=== PATIENT | male | born 1970 | race Caucasian/White ===

== ENCOUNTER 2017-12-30 19:32 | Observation (INO) ==
[2017-12-30] MEDS ORDERED: diazePAM 2 MG Tablet PO ONE (22:30)
[2017-12-30] MEDS ORDERED: HYDROmorphone PF Inj 2 MG/ML Vial IV.PUSH ONE (22:30)
--- NOTE | 2017-12-30 22:42 | ED ---
HPI General Chief complaint: Back Pain/Injury Stated complaint: L Back Pain Time Seen by Provider: 12/30/17 22:20 Source: patient, family, RN notes reviewed and old records reviewed Mode of arrival: ambulatory History of Present Illness HPI narrative: 47yM presenting with low back pain. The patient states that he had multi-level lumbar fusion several years ago by Dr. Key; over the past 2 weeks, he's started to develop midline lower back pain which radiates down his left leg, constant, worse with any movement and not made better by anything, severe, "sharp", associated with sexual dysfunction, urinary "dribbling", and left leg weakness. He denies trauma, fever or chills, recent heavy lifting or repetitive motions. He has been taking BC powder with minimal relief of symptoms. Related Data Home Medications Medication Instructions Recorded Confirmed No Known Home Medications 12/30/17 12/30/17 Allergies Allergy/AdvReac Type Severity Reaction Status Date / Time No Known Allergies Allergy Uncoded 06/27/15 09:19 Review of Systems ROS: all other systems reviewed are negative Constitutional Denies fever(s) Eyes Denies blurry vision Cardiovascular Denies chest pain Respiratory Denies cough Gastrointestinal Denies nausea Genitourinary Reports urinary incontinence Musculoskeletal Reports abnormal gait and Reports back pain Neurologic Denies confusion Psychiatric Denies confusion PMFSH History History Provided By: Patient Surgical History Surgical History History of back surgery (Acute) History of cholecystectomy (Acute) Hx of neck surgery (Acute) Social History Social History Substance History: No History of Abuse Second Hand Smoke Exposure: Yes Smoking Status: Current every day smoker Tobacco Type: Cigarettes How Often Do You Have a Drink Containing Alcohol: Never Immunization History Tetanus Immunization: <5 Years Hx Influenza Vaccine This Season: Yes Exam Const General: healthy appearing and no acute distress HENMT Head: normocephalic and atraumatic Face and sinus: normal facial exam Eyes General: appearance normal, both eyes and all related structures Pupils: PERRL Chest Chest: normal inspection of the chest Resp Effort & Inspection: normal respiratory effort Auscultation: no rhonchi and no wheezes Cardio Rate: regular rate Rhythm: regular rhythm GI Inspection: non-distended Palpation: soft and nontender Back/Spine/Pelvis Other: (+) midline lumbar spinal tenderness around L4/L5/ sacrum Well-healed midline surgical scar Skin General: no rashes or lesions noted Neuro General: alert, awake and oriented x3 Other: Motor strength 5/5 in right hip flexion/ extension, knee flexion/ extension, and plantar/ dorsiflexion Motor strength 4/5 in left hip flexion/ extension, knee flexion/ extension; 3/5 in left plantar/ dorsiflexion, (+) left foot drop Psych Affect: normal affect Course Initial Documented Vital Signs Temperature 98.1 F 12/30/17 19:53 Pulse Rate 75 12/30/17 19:53 Respiratory Rate 18 12/30/17 19:53 Blood Pressure 190/111 H 12/30/17 19:53 Pulse Oximetry 97 12/30/17 19:53 Last Documented Vital Signs Temperature 98.6 F 12/31/17 07:58 Pulse Rate 70 12/31/17 07:58 Respiratory Rate 20 12/31/17 08:00 Blood Pressure 150/68 H 12/31/17 07:58 Pulse Oximetry 98 12/31/17 07:58 Sign Out Sign Out Data: Patient Sign Out occurred on 12/30/17 at 23:35. Patient's care was discussed, and care was transferred from Sangeeta Rodrigues DO to DYLAN Smith. Sign Out Comment: Severe low back pain, pending CT/ MRI and re-evaluation after pain meds Last updated by Sangeeta Rodrigues DO at 12/30/17 23:27 Post-Handoff Eval: I discussed the findings with the on-call neurosurgeon Dr. Anne who will be happy to see the patient in consultation, would like CRP, ESR and flexion- extension x-rays of lumbar spine ordered. Discussed with the patient and his were agreeable with admission. Medical Decision Making MDM Narrative Medical decision making narrative: Assessment: 47yM presenting with severe low back pain and LLE weakness Plan: Pain control Labs CT abd/pelvis MRI lumbar spine Medical Screen Exam Complete: Yes Emergency Medical Condition: Yes Differential Diagnosis Differential Diagnosis: Differential diagnosis includes, but is not limited to: HNP, cauda equina, conus medullaris, AAA, sciatica Lab Data Result diagrams: 12/30/17 23:00 08/16/18 23:00 Lab Results 12/30/17 12/30/17 12/30/17 Range/Units 00:00 00:00 23:00 WBC 11.6 H (4.0-11.0) th/mm3 RBC 5.84 (4.50-5.90) mil/mm3 Hgb 17.8 H (13.0-17.0) gm/dL Hct 50.2 (39.0-51.0) % MCV 85.9 (80.0-100.0) fL MCH 30.5 (27.0-34.0) pg MCHC 35.5 (32.0-36.0) % RDW 13.4 (11.6-17.2) % Plt Count 180 (150-450) th/mm3 MPV 9.6 (7.0-11.0) fL Neut % (Auto) 70.8 H (16.0-70.0) % Lymph % (Auto) 20.9 (9.0-44.0) % [place] % (Auto) 5.7 (0.0-8.0) % Eos % (Auto) 1.4 (0.0-4.0) % Baso % (Auto) 1.2 (0.0-2.0) % Neut # (Auto) 8.2 H (1.8-7.7) th/mm3 Lymph # (Auto) 2.4 (1.0-4.8) th/mm3 [place] # (Auto) 0.7 (0.0-0.9) th/mm3 Eos # (Auto) 0.2 (0.0-0.4) th/mm3 Baso # (Auto) 0.1 (0.0-0.2) th/mm3 WBC Differential . Differential Comment Auto diff final ESR 1 (0-15) mm/hr Sodium (136-145) meq/L Potassium (3.5-5.1) meq/L Chloride (98-107) meq/L Carbon Dioxide (21.0-32.0) meq/L Anion Gap (5-15) meq/L BUN (7-18) mg/dL Creatinine (0.60-1.30) mg/dL Estimated GFR (>89) mL/min Random Glucose (74-106) mg/dL Calcium (8.5-10.1) mg/dL C-Reactive Protein Less than 0.29 (0.00-0.30) mg/dL Urine Color (Yellw/Straw) Urine Clarity (Clear) Urine pH (5.0-8.5) Ur Specific [place] (1.002-1.035) Urine Protein (Neg-Trace) mg/dL Urine Glucose (UA) (Negative) mg/dL Urine Ketones (Negative) mg/dL Urine Occult Blood (Negative) Urine Nitrate (Negative) Urine Bilirubin (Negative) Urine Urobilinogen (Less than 2) mg/dL Ur Leukocyte Esterase (Negative) Urine RBC (0-3) /hpf Urine WBC (0-5) /hpf Urine Mucus (Occasional) /lpf Micro UA Comment Urine Culture Comments 12/30/17 12/31/17 Range/Units 23:00 04:15 WBC (4.0-11.0) th/mm3 RBC (4.50-5.90) mil/mm3 Hgb (13.0-17.0) gm/dL Hct (39.0-51.0) % MCV (80.0-100.0) fL MCH (27.0-34.0) pg MCHC (32.0-36.0) % RDW (11.6-17.2) % Plt Count (150-450) th/mm3 MPV (7.0-11.0) fL Neut % (Auto) (16.0-70.0) % Lymph % (Auto) (9.0-44.0) % [place] % (Auto) (0.0-8.0) % Eos % (Auto) (0.0-4.0) % Baso % (Auto) (0.0-2.0) % Neut # (Auto) (1.8-7.7) th/mm3 Lymph # (Auto) (1.0-4.8) th/mm3 [place] # (Auto) (0.0-0.9) th/mm3 Eos # (Auto) (0.0-0.4) th/mm3 Baso # (Auto) (0.0-0.2) th/mm3 WBC Differential Differential Comment ESR (0-15) mm/hr Sodium 142 (136-145) meq/L Potassium 3.7 (3.5-5.1) meq/L Chloride 109 H (98-107) meq/L Carbon Dioxide 26.4 (21.0-32.0) meq/L Anion Gap 7 (5-15) meq/L BUN 12 (7-18) mg/dL Creatinine 0.94 (0.60-1.30) mg/dL Estimated GFR 86 L (>89) mL/min Random Glucose 98 (74-106) mg/dL Calcium 9.1 (8.5-10.1) mg/dL C-Reactive Protein (0.00-0.30) mg/dL Urine Color Yellow (Yellw/Straw) Urine Clarity Clear (Clear) Urine pH 6.0 (5.0-8.5) Ur Specific [place] 1.021 (1.002-1.035) Urine Protein Negative (Neg-Trace) mg/dL Urine Glucose (UA) Negative (Negative) mg/dL Urine Ketones Negative (Negative) mg/dL Urine Occult Blood Negative (Negative) Urine Nitrate Negative (Negative) Urine Bilirubin Negative (Negative) Urine Urobilinogen Less than 2 (Less than 2) mg/dL Ur Leukocyte Esterase Negative (Negative) Urine RBC 1 (0-3) /hpf Urine WBC 1 (0-5) /hpf Urine Mucus Few H (Occasional) /lpf Micro UA Comment Culture not ind Urine Culture Comments Culture not ind Imaging Data Radiologist's impression: Abdomen/Pelvis CT 12/31/17 00:00 CONCLUSION: 1. No acute abdominal or pelvic abnormality. 2. Contrast within the renal collecting systems from the prior MRI examination. 3. Degenerative change in the lumbar spine. Lumbar Spine X-Ray 12/31/17 01:14 CONCLUSION: No abnormal motion is detected. Lumbar Spine MRI 12/31/17 22:57 CONCLUSION: 1. Status post left hemilaminectomy at the L4 and L5 levels. 2. Epidural scarring seen in the left anterior and left lateral epidural space at the L5-S1 level surrounding the left S1 nerve root. 3. Mild to moderate disc protrusion and surrounding anterior epidural enhancement at the central to left lateral L4-L5 level. 4. Mild central to right sided disc protrusion at the L3-L4 level. Discharge Plan Discharge Disposition Patient Disposition: 30 Still Patient Discharge Condition Condition: Stable Discharge Details Diagnosis: Lumbar radiculopathy, Left leg weakness, Hypertensive urgency Physicians Team ED Provider: Jane Hernández ED Midlevel Provider: Bala Wilkerson Primary Care Provider: Primary Care Pamela,Jazmin Attending Provider: Gerard Krishnan Other Providers: [facility],Insurance ; Kolby Anne Status ED Status: Left Department Discharge Information Discharge Date/Time: 12/31/17 04:03
[2017-12-30 23:24] LABS: Baso # (Auto) 0.1 th/mm3 (0.0-0.2); Baso % (Auto) 1.2 % (0.0-2.0); Eos # (Auto) 0.2 th/mm3 (0.0-0.4); Eos % (Auto) 1.4 % (0.0-4.0); Hematocrit 50.2 % (39.0-51.0); Hemoglobin 17.8 gm/dL (13.0-17.0); Lymph # (Auto) 2.4 th/mm3 (1.0-4.8); Lymph % (Auto) 20.9 % (9.0-44.0); Mean Corpuscular HGB Conc 35.5 % (32.0-36.0); Mean Corpuscular Hemoglobin 30.5 pg (27.0-34.0); Mean Corpuscular Volume 85.9 fL (80.0-100.0); Mean Platelet Volume 9.6 fL (7.0-11.0); Mono # (Auto) 0.7 th/mm3 (0.0-0.9); Mono % (Auto) 5.7 % (0.0-8.0); Neut # (Auto) 8.2 th/mm3 (1.8-7.7); Neut % (Auto) 70.8 % (16.0-70.0); Platelet Count 180 th/mm3 (150-450); Red Blood Count 5.84 mil/mm3 (4.50-5.90); Red Cell Distribution Width 13.4 % (11.6-17.2); White Blood Count 11.6 th/mm3 (4.0-11.0)
[2017-12-30 23:45] LABS: Calcium 9.1 mg/dL (8.5-10.1); Carbon Dioxide 26.4 meq/L (21.0-32.0); Potassium 3.7 meq/L (3.5-5.1)
[2017-12-31] MEDS ORDERED: Gadobutrol PF 10 MMOL/10 ML Vial (for RAD) IV.SIG ONE (00:12)
--- NOTE | 2017-12-31 00:52 | MR ---
EXAM DATE: 12/31/2017 12:35 AM EDT AGE/SEX: 47 years / Male INDICATIONS: Pain. CLINICAL DATA: This is the patient's initial encounter. Patient reports that signs and symptoms have been present for 3 days and indicates a pain score of 9/10. MEDICAL/SURGICAL HISTORY: None. Fusion, cervical. Fusion, lumbar. Cholecystectomy. COMPARISON: No prior exams available for comparison. TECHNIQUE: Multiplanar, multisequence MRI examination of the lumbar spine was performed without and with 8 ml Gadavist (gadobutrol) contrast as a single exam dose. FINDINGS: The most caudal-appearing lumbar vertebra is numbered as L5. Vertebra: Homogeneous signal. Normal alignment. Conus: Normal level and configuration. Post Contrast: No abnormal areas of contrast enhancement are seen. T12-L1: The thecal sac has a normal diameter. No evidence of disc bulge or protrusion. The neural foramina are patent bilaterally. L1-L2: The thecal sac has a normal diameter. No evidence of disc bulge or protrusion. The neural foramina are patent bilaterally. L2-L3: The thecal sac has a normal diameter. No evidence of disc bulge or protrusion. The neural foramina are patent bilaterally. L3-L4: There is a mild central to right lateral recess disc protrusion. There continues to be CSF a round the nerve roots. The neural foramina are patent bilaterally. L4-L5: There is a mild to moderate central to left lateral recess disc protrusion causing mild impr ession on the anterior left side of thecal sac. This abuts the left L5 nerve root at the lateral rece ss level. There is some enhancement in the epidural space around the disc changes. The patient appear s to be status post left hemilaminectomy. There is moderate facet hypertrophy being worse on the left . The neural foramina are grossly patent. L5-S1: The disc demonstrates decreased signal and minimal loss of height. There is some focal brigh t signal posterior left lateral disc margin with enhancement that may represent post surgical change. There is epidural scarring seen is enhancement seen at the left lateral epidural space and the anter ior left epidural space surrounding the left S1 nerve root. The thecal sac has a normal diameter. N o evidence of disc bulge or protrusion. The neural foramina are patent bilaterally. There is mild to moderate facet hypertrophy. CONCLUSION: 1. Status post left hemilaminectomy at the L4 and L5 levels. 2. Epidural scarring seen in the left anterior and left lateral epidural space at the L5-S1 level torres rrounding the left S1 nerve root. 3. Mild to moderate disc protrusion and surrounding anterior epidural enhancement at the central to left lateral L4-L5 level. 4. Mild central to right sided disc protrusion at the L3-L4 level. Electronically signed by: Juan Mendoza MD 12/31/2017 12:50 AM EDT
[2017-12-31] MEDS ORDERED: Morphine Inj 4 MG/ML Vial IV.PUSH ONE (00:57)
--- NOTE | 2017-12-31 00:58 | CT ---
EXAM DATE: 12/31/2017 12:50 AM EDT AGE/SEX: 47 years / Male INDICATIONS: Abdominal pain, severe midline lower back pain, urinary incontinence. CLINICAL DATA: This is the patient's initial encounter. Patient reports that signs and symptoms have been present for 1 day and indicates a pain score of 7/10. MEDICAL/SURGICAL HISTORY: None. Cholecystectomy. RADIATION DOSE: 6.59 CTDI (mGy) COMPARISON: No prior exams available for comparison. TECHNIQUE: Multiple contiguous axial images were obtained through the abdomen. Images were obtained using multiple row detector helical technique. Using automated exposure control and adjustment of the mA and/or kV according to patient size, radiation dose was kept as low as reasonably achievable to o btain optimal diagnostic quality images. DICOM format image data is available electronically for rev iew and comparison. FINDINGS: Lower Lungs: The visualized lower lungs are clear. Liver: The liver has a homogeneous density without space-occupying lesion. There is no dilation of th e biliary tree. The patient is status post cholecystectomy. Spleen: Homogeneous density without enlargement. Pancreas: Unremarkable without mass or calcification. Kidneys: Normal in size and shape. No evidence of mass or hydronephrosis. There is contrast within t he renal collecting systems presumably from the prior MRI examination. Adrenal Glands: Unremarkable. Aorta: The aorta and proximal iliac vessels are grossly unremarkable without aneurysmal dilation. Bowel/Mesentery: The bowel loops are grossly unremarkable. The appendix is normal. There are a few s cattered colonic diverticula without inflammatory change. The cecum and sigmoid colon have a normal c onfiguration. Abdominal Wall: Intact. Retroperitoneum: No evidence of adenopathy in the retrocrural, para-aortic, or deep pelvic regions. Bladder: Contours are smooth. Reproductive Organs: No abnormal masses or calcifications seen. Inguinal: The inguinal region is unremarkable without evidence of adenopathy. Bony Structures: There is degenerative change in the lower lumbar spine. CONCLUSION: 1. No acute abdominal or pelvic abnormality. 2. Contrast within the renal collecting systems from the prior MRI examination. 3. Degenerative change in the lumbar spine. Electronically signed by: Juan Mendoza MD 12/31/2017 12:57 AM EDT
[2017-12-31] MEDS ORDERED: Temazepam 15 MG Capsule PO PRN (01:31)
[2017-12-31] MEDS ORDERED: Acetaminophen 325 MG Tablet PO PRN (01:31)
[2017-12-31] MEDS ORDERED: Bisacodyl 10 MG Supp RECTAL PRN (01:31)
[2017-12-31] MEDS ORDERED: HYDROmorphone PF Inj 2 MG/ML Vial IV.PUSH PRN (01:32)
[2017-12-31] MEDS ORDERED: Metoprolol Inj 5 MG/5 ML Vial IV.PUSH ONE (01:55)
--- NOTE | 2017-12-31 02:07 | XR ---
EXAM DATE: 12/31/2017 2:00 AM EDT AGE/SEX: 47 years / Male INDICATIONS: Low back pain with leg weakness. CLINICAL DATA: This is the patient's subsequent encounter. Patient reports that signs and symptoms h ave been present for 1 day and indicates a pain score of 8/10. MEDICAL/SURGICAL HISTORY: None. None. Laminectomy COMPARISON: No prior exams available for comparison. FINDINGS: Flexion and extension views of the spine were performed. The alignment of the vertebral bodies is ma intained in flexion and extension and there is no evidence of subluxation. The prevertebral soft tis sues are normal in thickness. There is mild loss of disc space height at the L4-L5 and L5-S1 levels. There is facet hypertrophy at the L4-L5 and L5-S1 levels. CONCLUSION: No abnormal motion is detected. Electronically signed by: Juan Mendoza MD 12/31/2017 2:06 AM EDT
[2017-12-31] MEDS: Sod Chloride 0.9% Inj 1,000 ML IV.CONT SCH ×2 (02:13→12:13)
--- NOTE | 2017-12-31 02:29 | P.HPIM ---
History of Present Illness Primary Care Physician: No Primary Care Physician History of Present Illness: This is a 47-year-old male with a PMH of Lumbar Fusion by Dr. Key who presented to the ER w/ complaints of severe back pain, LLE weakness, left foot drop and urinary incontinence. States back pain started approx 5-6 months ago and has gotten progressively worse since then. 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 Approx 1wk ago notes urinary incontinence as well. Has been taking BC powder 6-7 times per day w/ transient relief. Today, noted pt "dragging my foot", similar to symptoms when patient underwent surgery by Dr. Key. Denies any trauma or direct injury. No fever, chills, sick contacts. On arrival, BP 234/ 111, HR 78, O2 sat 98% on RA, Afebrile. WBC 11.6. Hemoglobin 17.8. GFR 86. CT Abdomen/Pelvis with no acute findings. MRI L-spine with left hemilaminectomy L4-L5, epidural scarring at L5-S1, mild to moderate disc protrusion L4-L5 and central to right-sided disc protrusion L3-L4. Dr. Anne consulted by ER physician, recommended ESR/CRP and Lumbar Flex/Ext X-ray. Pain currently improved after Dilaudid and Morphine. - Diagnosis (1) Intractable pain (2) Weakness (3) HTN (hypertension) Review of Systems PAST FAMILY HISTORY: Reviewed. No h/o DM or CAD All other systems reviewed negative except as stated in HPI [facility] - History History Provided By: Patient - Surgical History Surgical History: Surgical History (Last Reviewed 12/30/17 @ 22:54 by Sangeeta Rodrigues DO) History of back surgery History of cholecystectomy Hx of neck surgery - Tobacco History Second Hand Smoke Exposure: Yes Tobacco Use In Past 30 Days: No Smoking Status: Current every day smoker Tobacco Type: Cigarettes - Alcohol History How Often Do You Have a Drink Containing Alcohol: Monthly or less - Substance Use History Substance History: No History of Abuse - Immunization History Tetanus Immunization: <5 Years Hx Influenza Vaccine This Season: Yes Medications and Allergies Active Medications: Active Medications Acetaminophen (Tylenol) 650 mg PO Q4H PRN PRN Reason: Temp > 100.4 Hydrocodone Bitart/Acetaminophen ([place] 10/325) 1 tab PO Q4H PRN PRN Reason: PAIN 3-5 Al Hydroxide/Mg Hydroxide (Milk Of Magnesia Liq) 30 ml PO Q12H PRN PRN Reason: Mild Constipation Bisacodyl (Dulcolax Supp) 10 mg RECTAL DAILY PRN PRN Reason: SEVERE CONSITIPATION Cyclobenzaprine HCl (Flexeril) 10 mg PO Q8HR PRN PRN Reason: MUSCLE SPASM Hydromorphone HCl (Dilaudid Pf Inj) 1 mg IV.PUSH Q4H PRN PRN Reason: PAIN 6-10 Sodium Chloride (Ns Inj) 1,000 mls @ 100 mls/hr IV.CONT .Q10H ROMULO Last Admin: 12/31/17 02:13 Dose: 100 mls/hr Lactulose (Lactulose Liq) 30 ml PO DAILY PRN PRN Reason: SEVERE CONSITIPATION Ondansetron HCl (Zofran Inj) 4 mg IV.PUSH Q6H PRN PRN Reason: NAUSEA OR VOMITING Senna/Docusate Sodium (Argelia-Colace) 1 tab PO BID [facility] Sennosides (Senokot) 17.2 mg PO Q12H PRN PRN Reason: Moderate Constipation Temazepam (Restoril) 15 mg PO HS PRN PRN Reason: INSOMNIA Allergies Allergy/AdvReac Type Severity Reaction Status Date / Time No Known Allergies Allergy Uncoded 06/27/15 09:19 Home Medications Medication Instructions Recorded Confirmed Type No Known Home Medications 12/30/17 12/30/17 History Exam Vital signs: Vital Signs 12/30/17 19:53 12/30/17 22:29 12/30/17 23:04 Temperature 98.1 F 98.4 F Pulse Rate 75 78 62 Respiratory Rate 18 20 17 Blood Pressure 190/111 H 234/111 H 204/109 H Pulse Oximetry 97 98 98 12/31/17 00:40 Temperature Pulse Rate 57 L Respiratory Rate 18 Blood Pressure 214/103 H Pulse Oximetry 98 Intake & Output 12/30/17 12/30/17 12/31/17 06:59 18:59 06:59 Weight 85 kg Narrative: PE: GENERAL: Very pleasant young white male in no acute distress. HEENT: PERRLA, EOMI. No scleral icterus or conjunctival pallor. No lid lag or facial droop. CARDIOVASCULAR: Regular rate and rhythm. No obvious murmurs to auscultation. No chest tenderness to palpation. RESPIRATORY: No obvious rhonchi or wheezing. Clear to auscultation. Breath sounds equal bilaterally. GASTROINTESTINAL: Abdomen soft, non-tender, nondistended. BS normal. MUSCULOSKELETAL: Extremities without clubbing, cyanosis, or edema. No obvious deformities. NEUROLOGICAL: Awake, alert and oriented x4. Strength 5/5 Bilateral UE, Strength 5/5 LUE, 4/5 LLE, +left foot drop. Moving both upper and lower extremities spontaneously. Results - Labs CBC & Chem 7: 12/30/17 23:00 12/30/17 23:00 Labs: Short CBC 12/30/17 Range/Units 23:00 WBC 11.6 H (4.0-11.0) th/mm3 Hgb 17.8 H (13.0-17.0) gm/dL Hct 50.2 (39.0-51.0) % Plt Count 180 (150-450) th/mm3 BMP 12/30/17 23:00 Sodium 142 Potassium 3.7 Chloride 109 H Carbon Dioxide 26.4 BUN 12 Creatinine 0.94 Calcium 9.1 - Imaging Impressions Abdomen/Pelvis CT 12/31/17 00:00 CONCLUSION: 1. No acute abdominal or pelvic abnormality. 2. Contrast within the renal collecting systems from the prior MRI examination. 3. Degenerative change in the lumbar spine. Lumbar Spine X-Ray 12/31/17 01:14 CONCLUSION: No abnormal motion is detected. Lumbar Spine MRI 12/31/17 22:57 CONCLUSION: 1. Status post left hemilaminectomy at the L4 and L5 levels. 2. Epidural scarring seen in the left anterior and left lateral epidural space at the L5-S1 level surrounding the left S1 nerve root. 3. Mild to moderate disc protrusion and surrounding anterior epidural enhancement at the central to left lateral L4-L5 level. 4. Mild central to right sided disc protrusion at the L3-L4 level. Caprini VTE Risk Assessment Caprini VTE Risk Assessment: No/Low Risk (score <= 1) Caprini Risk Assessment Model: Point Value = 1 Point Value = 2 Point Value = 3 Point Value = 5 Age 41-60 Minor surgery BMI > 25 kg/m2 Swollen legs Varicose veins or History of unexplained or recurrent spontaneous Oral contraceptives or hormone replacement Sepsis (< 1 month) Serious lung disease, including pneumonia (< 1 month) Abnormal pulmonary function Acute myocardial infarction Congestive heart failure (< 1 month) History of inflammatory bowel disease Medical patient at bed rest Age 61-74 Arthroscopic surgery Major open surgery (> 45 min) Laparoscopic surgery (> 45 min) Malignancy Confined to bed (> 72 hours) Immobilizing plaster cast Central venous access Age >= 75 History of VTE Family history of VTE Factor V Leiden Prothrombin [id number] Lupus anticoagulant Anticardiolipin antibodies Elevated serum homocysteine Heparin-induced thrombocytopenia Other congenital or acquired thrombophilia Stroke (< 1 month) Elective arthroplasty Hip, pelvis, or leg fracture Acute spinal cord injury (< 1 month) Prophylaxis Regimen: Total Risk Factor Score Risk Level Prophylaxis Regimen 0-1 Low Early ambulation 2 Moderate Order ONE of the following: *Sequential Compression Device (SCD) *Heparin 5000 units SQ BID 3-4 Higher Order ONE of the following medications: *Heparin 5000 units SQ TID *Enoxaparin/Lovenox 40 mg SQ daily (WT < 150 kg, CrCl > 30 mL/min) *Enoxaparin/Lovenox 30 mg SQ daily (WT < 150 kg, CrCl > 10-29 mL/min) *Enoxaparin/Lovenox 30 mg SQ BID (WT < 150 kg, CrCl > 30 mL/min) AND/OR *Sequential Compression Device (SCD) 5 or more Highest Order ONE of the following medications: *Heparin 5000 units SQ TID (Preferred with Epidurals) *Enoxaparin/Lovenox 40 mg SQ daily (WT < 150 kg, CrCl > 30 mL/min) *Enoxaparin/Lovenox 30 mg SQ daily (WT < 150 kg, CrCl > 10-29 mL/min) *Enoxaparin/Lovenox 30 mg SQ BID (WT < 150 kg, CrCl > 30 mL/min) AND *Sequential Compression Device (SCD) Assessment and Plan - Assessment (1) Intractable pain Code(s): R52 - Pain, unspecified Status: Acute (2) Weakness Code(s): R53.1 - Weakness Status: Acute (3) HTN (hypertension) Code(s): I10 - Essential (primary) hypertension Status: Acute - Plan A/P: 1. Intractable Back Pain: c/o back pain for 5-6 months, now w/ acute worsening , taking BC Powder 6-7 times per day w/ transient relief, previous h/o hemilaminectomy L4-L5, MRI L-Spine w/ epidural scarring at L5-S1, mild to moderate protrusion L4-L5, mild central right protrusion L3-L4. Dr. Anne consulted, recommendation for ESR/CRP and Flex-Ext X-rays, currently pending, will follow. Analgesics/antiemetics, hold BC Powder/NSAIDs, IVF for hydration. Flexeril prn. 2. HTN: Uncontrolled. 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 BP here 234/111, HR 78, s/p Clonidine, will give additional Lopressor 5mg IV x1, continue w/ pain control. 3. Weakness: secondary to above, await Neurosurgical eval, PT for eval/tx. 4. DVT Prophylaxis: SCD/teds. 5. Social work for DC planning as needed. 6. Case discussed at length with the ER physician, lab/record/imaging reviewed by me.
[2017-12-31] MEDS: Morphine Inj 4 MG/ML Vial IV.PUSH PRN ×3 (04:38→15:52)
[2017-12-31 04:46] LABS: Bilirubin,Urine Negative (Negative); Clarity,Urine Clear (Clear); Color,Urine Yellow (Yellw/Straw); Glucose,Urine (UA) Negative (Negative); Leukocyte Esterase,Urine Negative (Negative); Mucus,Urine Few /lpf (Occasional); Nitrite,Urine Negative (Negative); Specific Gravity,Urine 1.021 (1.002-1.035)
[2017-12-31] MEDS ORDERED: Senna/Docusate Sodium 8.6/50 MG Tablet PO SCH (09:00)
--- NOTE | 2017-12-31 11:16 | P.CONNS ---
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 [place]. Did very well after that surgery. Over the past several months has had progressively worsening back pain (several recent flights and increased activity lately). Reports increasing back pain in past week. Reports urinary dribbling after he has voided. Able to void. Reports mild intermittent constipation. Has been taking some ASA mixture. Reports spasm left side of back. On exam overnight, was noted to have left sided mild weakness (?foot drop ). MRI L-spine obtained. [facility] - History History Provided By: Patient - Surgical History Surgical History: Surgical History (Last Reviewed 12/31/17 @ 08:25 by Jose C Stanley) History of back surgery History of cholecystectomy Hx of neck surgery - Tobacco History Second Hand Smoke Exposure: Yes Tobacco Use In Past 30 Days: Yes Smoking Status: Current every day smoker Tobacco Type: Cigarettes - Alcohol History How Often Do You Have a Drink Containing Alcohol: Never - Substance Use History Substance History: No History of Abuse - Immunization History Tetanus Immunization: <5 Years Hx Influenza Vaccine This Season: Yes Medications and Allergies Active Medications: Active Medications Acetaminophen (Tylenol) 650 mg PO Q4H PRN PRN Reason: Temp > 100.4 Hydrocodone Bitart/Acetaminophen ([place] 10/325) 1 tab PO Q4H PRN PRN Reason: PAIN 3-5 Al Hydroxide/Mg Hydroxide (Milk Of Magnesia Liq) 30 ml PO Q12H PRN PRN Reason: Mild Constipation Bisacodyl (Dulcolax Supp) 10 mg RECTAL DAILY PRN PRN Reason: SEVERE CONSITIPATION Cyclobenzaprine HCl (Flexeril) 10 mg PO Q8HR PRN PRN Reason: MUSCLE SPASM Last Admin: 12/31/17 08:21 Dose: 10 mg Sodium Chloride (Ns Inj) 1,000 mls @ 100 mls/hr IV.CONT .Q10H ROMULO Last Admin: 12/31/17 02:13 Dose: 100 mls/hr Lactulose (Lactulose Liq) 30 ml PO DAILY PRN PRN Reason: SEVERE CONSITIPATION Last Admin: 12/31/17 04:38 Dose: 30 ml Morphine Sulfate (Morphine Inj) 4 mg IV.PUSH Q4H PRN PRN Reason: pain 1 to 10 Last Admin: 12/31/17 10:04 Dose: 4 mg Ondansetron HCl (Zofran Inj) 4 mg IV.PUSH Q6H PRN PRN Reason: NAUSEA OR VOMITING Senna/Docusate Sodium (Argelia-Colace) 1 tab PO BID ROMULO Last Admin: 12/31/17 08:20 Dose: 1 tab Sennosides (Senokot) 17.2 mg PO Q12H PRN PRN Reason: Moderate Constipation Temazepam (Restoril) 15 mg PO HS PRN PRN Reason: INSOMNIA Allergies Allergy/AdvReac Type Severity Reaction Status Date / Time No Known Allergies Allergy Uncoded 06/27/15 09:19 Home Medications Medication Instructions Recorded Confirmed Type No Known Home Medications 12/30/17 12/30/17 History Exam Vital signs: Vital Signs 12/30/17 19:53 12/30/17 22:29 12/30/17 23:04 Temperature 98.1 F 98.4 F Pulse Rate 75 78 62 Respiratory Rate 18 20 17 Blood Pressure 190/111 H 234/111 H 204/109 H Pulse Oximetry 97 98 98 12/31/17 00:40 12/31/17 02:14 12/31/17 02:24 Temperature 98.3 F 98.4 F Pulse Rate 57 L 65 55 L Respiratory Rate 18 16 18 Blood Pressure 214/103 H 187/110 H 156/98 H Pulse Oximetry 98 98 98 12/31/17 04:44 12/31/17 07:58 12/31/17 08:00 Temperature 98.2 F 98.6 F Pulse Rate 56 L 70 Respiratory Rate 18 20 20 Blood Pressure 141/89 H 150/68 H Pulse Oximetry 98 98 Intake & Output 12/30/17 12/31/17 12/31/17 18:59 06:59 18:59 Intake Total 480 / 480 Balance 480 / 480 Weight 85 kg Intake: Oral 480 / 480 Other: # Voids 1 Date of Last Bowel Movement 12/27/17 Narrative: A&O x 3 CN II-XII intact Motor 5/5 UE and RLE LLE tests to full strength but is slower to activate dorsiflexion 5- and EHL 5-. Intact sensation throughout Knee flexion causes back pain but not extension (+SLR) Results - Laboratory Findings CBC and BMP: 12/30/17 23:00 12/30/17 23:00 Abnormal lab findings: Abnormal Labs 12/30/17 12/30/17 12/31/17 23:00 23:00 04:15 WBC 11.6 H Hgb 17.8 H Neut % (Auto) 70.8 H Neut # (Auto) 8.2 H Chloride 109 H Estimated GFR 86 L Urine Mucus Few H Assessment and Plan - Plan 47yoM with disc herniation at left L4/5 which is symptomatic. Dorsiflexion weakness actually appears to be pain limited and mild. Discussed with Dr. Key and patient would like to see Dr. Key in the clinic next week (Scheduling Number ). Recommend Medrol dosepack. Urinary dribbling is not consistent with cauda equina syndrome nor size of disc herniation. May be related to pain. If patient still symptomatic after conservative measures, could consider left L4 /5 discectomy.
[2017-12-31] MEDS ORDERED: MethylPREDNISolone Sod Succinate Inj 125 MG/2 ML Vial IV.PUSH ONE (12:00)
--- NOTE | 2017-12-31 14:42 | MR ---
EXAM DATE: 12/31/2017 2:29 PM EDT AGE/SEX: 47 years / Male INDICATIONS: . Back pain. CLINICAL DATA: This is the patient's initial encounter. Patient reports that signs and symptoms have been present for 4 - 6 days and indicates a pain score of 5/10. MEDICAL/SURGICAL HISTORY: . Degenerative disc disease. Discectomy, lumbar. Fusion, cervical. COMPARISON: No prior exams available for comparison. TECHNIQUE: Multiplanar, multisequence MRI of the thoracic spine was performed. FINDINGS: There is normal alignment of the thoracic spine. No discrete disc protrusions. Mild degenerative disc disease is present. No canal or foraminal stenosis. No cord impingement or cord signal abnormality. CONCLUSION: 1. Mild degenerative change. Examination otherwise within normal limits for age. Electronically signed by: Sawyer Aponte MD 12/31/2017 2:40 PM EDT
--- NOTE | 2017-12-31 17:27 | P.DS ---
Date of admission: 12/31/17 01:31 Primary care physician: No Primary Care Physician Brief History from admission: This is a 47-year-old male with a PMH of Lumbar Fusion by Dr. Key who presented to the ER w/ complaints of severe back pain, LLE weakness, left foot drop and urinary incontinence. States back pain started approx 5-6 months ago and has gotten progressively worse since then. 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 Approx 1wk ago notes urinary incontinence as well. Has been taking BC powder 6-7 times per day w/ transient relief. Today, noted pt "dragging my foot", similar to symptoms when patient underwent surgery by Dr. Key. Denies any trauma or direct injury. No fever, chills, sick contacts. On arrival, BP 234/ 111, HR 78, O2 sat 98% on RA, Afebrile. WBC 11.6. Hemoglobin 17.8. GFR 86. CT Abdomen/Pelvis with no acute findings. MRI L-spine with left hemilaminectomy L4-L5, epidural scarring at L5-S1, mild to moderate disc protrusion L4-L5 and central to right-sided disc protrusion L3-L4. Dr. Anne consulted by ER physician, recommended ESR/CRP and Lumbar Flex/Ext X-ray. Pain currently improved after Dilaudid and Morphine. DS: Medications - Discharge Medications Prescriptions: cyclobenzaprine 10 mg PO Q8HR PRN #90 tab PRN Reason: Muscle Spasm cyclobenzaprine 10 mg PO TID PRN #90 tab PRN Reason: Muscle Spasm oxycodone-acetaminophen [Percocet] 1 tab PO Q4-6H PRN #30 tab PRN Reason: Pain 3 to 10 prednisone 10 mg PO DIRECTED #30 tab DS: Summary Hospital Course: Mr. Echavarria is a 47-year-old male. He is admitted secondary to severe lower back pain with symptoms of severe back pain, LLE weakness, left foot drop and urinary incontinence. Lumbar spine imaging showed mild to moderate disease without any evidence of focal severe disease. Thoracic spine was also imaged and showed no abnormalities with mild diffuse chronic changes. Plan at this point he is systemic steroids with a taper over approximately 2 weeks. Patient is agreeable to this. He was offered the option to stay inpatient to ensure that the symptoms improve. He is cleared by neurosurgery and wishes to discharged to home. Patient is cleared for discharge with outpatient muscle relaxer, steroid taper, and pain treatments. Patient's pain treatments were verified and improved through [facility]. - Time Spent with Patient Total time spent providing and/or coordinating discharge services: Less than 30 minutes - Quality: VTE Deep Vein Thrombosis/Pulmonary Embolism Present on Admission: No Exam Vital signs: Vital Signs 12/30/17 19:53 12/30/17 22:29 12/30/17 23:04 Temperature 98.1 F 98.4 F Pulse Rate 75 78 62 Respiratory Rate 18 20 17 Blood Pressure 190/111 H 234/111 H 204/109 H Pulse Oximetry 97 98 98 12/31/17 00:40 12/31/17 02:14 12/31/17 02:24 Temperature 98.3 F 98.4 F Pulse Rate 57 L 65 55 L Respiratory Rate 18 16 18 Blood Pressure 214/103 H 187/110 H 156/98 H Pulse Oximetry 98 98 98 12/31/17 04:44 12/31/17 07:58 12/31/17 08:00 Temperature 98.2 F 98.6 F Pulse Rate 56 L 70 Respiratory Rate 18 20 20 Blood Pressure 141/89 H 150/68 H Pulse Oximetry 98 98 12/31/17 12:07 12/31/17 15:52 Temperature 98.2 F Pulse Rate 56 L 50 L Respiratory Rate 20 18 Blood Pressure 174/92 H 160/90 H Pulse Oximetry 18 L 96 Intake & Output 12/30/17 12/31/17 12/31/17 18:59 06:59 18:59 Intake Total 480 / 480 0 / 0 Balance 480 / 480 0 / 0 Weight 85 kg Intake: IV 0 / 0 NS Inj 1,000 ML @ 100 mls/hr IV 0 / 0 .CONT .Q10H ROMULO Rx#:[id number] Oral 480 / 480 Other: # Voids 1 Date of Last Bowel Movement 12/27/17 12/27/17 Results Procedures completed during hospitalization: none Labs on day of discharge: Labs from last 24 hours 12/31/17 12/30/17 12/30/17 04:15 23:00 23:00 WBC 11.6 H RBC 5.84 Hgb 17.8 H Hct 50.2 MCV 85.9 MCH 30.5 MCHC 35.5 RDW 13.4 Plt Count 180 MPV 9.6 Neut % (Auto) 70.8 H Lymph % (Auto) 20.9 [place] % (Auto) 5.7 Eos % (Auto) 1.4 Baso % (Auto) 1.2 Neut # (Auto) 8.2 H Lymph # (Auto) 2.4 [place] # (Auto) 0.7 Eos # (Auto) 0.2 Baso # (Auto) 0.1 WBC Differential . Differential Comment Auto diff final ESR Sodium 142 Potassium 3.7 Chloride 109 H Carbon Dioxide 26.4 Anion Gap 7 BUN 12 Creatinine 0.94 Estimated GFR 86 L Random Glucose 98 Calcium 9.1 C-Reactive Protein Urine Color Yellow Urine Clarity Clear Urine pH 6.0 Ur Specific [place] 1.021 Urine Protein Negative Urine Glucose (UA) Negative Urine Ketones Negative Urine Occult Blood Negative Urine Nitrate Negative Urine Bilirubin Negative Urine Urobilinogen Less than 2 Ur Leukocyte Esterase Negative Urine RBC 1 Urine WBC 1 Urine Mucus Few H Micro UA Comment Culture not ind Urine Culture Comments Culture not ind 12/30/17 12/30/17 00:00 00:00 WBC RBC Hgb Hct MCV MCH MCHC RDW Plt Count MPV Neut % (Auto) Lymph % (Auto) [place] % (Auto) Eos % (Auto) Baso % (Auto) Neut # (Auto) Lymph # (Auto) [place] # (Auto) Eos # (Auto) Baso # (Auto) WBC Differential Differential Comment ESR 1 Sodium Potassium Chloride Carbon Dioxide Anion Gap BUN Creatinine Estimated GFR Random Glucose Calcium C-Reactive Protein Less than 0.29 Urine Color Urine Clarity Urine pH Ur Specific [place] Urine Protein Urine Glucose (UA) Urine Ketones Urine Occult Blood Urine Nitrate Urine Bilirubin Urine Urobilinogen Ur Leukocyte Esterase Urine RBC Urine WBC Urine Mucus Micro UA Comment Urine Culture Comments - Impressions ITS Impressions Abdomen/Pelvis CT 12/31/17 00:00 CONCLUSION: 1. No acute abdominal or pelvic abnormality. 2. Contrast within the renal collecting systems from the prior MRI examination. 3. Degenerative change in the lumbar spine. Thoracic Spine MRI 12/31/17 00:00 CONCLUSION: 1. Mild degenerative change. Examination otherwise within normal limits for age. Lumbar Spine X-Ray 12/31/17 01:14 CONCLUSION: No abnormal motion is detected. Lumbar Spine MRI 12/31/17 22:57 CONCLUSION: 1. Status post left hemilaminectomy at the L4 and L5 levels. 2. Epidural scarring seen in the left anterior and left lateral epidural space at the L5-S1 level surrounding the left S1 nerve root. 3. Mild to moderate disc protrusion and surrounding anterior epidural enhancement at the central to left lateral L4-L5 level. 4. Mild central to right sided disc protrusion at the L3-L4 level. Discharge Plan - Discharge Disposition Patient Disposition: 01 Discharge Home - Discharge Condition Condition: Stable - Discharge Order Discharge Orders: Discharge Order (Routine); Ordered 12/31/17 Ordered By: Gerard Krishnan - Discharge Details Anticipated Discharge Date: 12/31/17 - Physicians Team Primary Care Provider: Primary Care Yii,No Attending Provider: Gerard Krishnan Other Providers: Spotsetter,Insurance ; Kolby Anne MD ; Shanthi Cruz MD
[2017-12-31] MEDS ORDERED: MethylPREDNISolone Sod Succinate Inj 40 MG/ML Vial IV.PUSH SCH (21:00)
== END 2017-12-31 17:45 | disposition home or self-care (01) ==
LOC: NEPD 19:32 → NEPGCP 19:32 → NEDA 19:32 → NEPGCP 12-31 03:59
PROVIDERS: ADMIT Hospitalist; ATTEND Hospitalist
DX: Z90.49 Acquired absence of other specified parts of digestive tract; R32 Unspecified urinary incontinence; Z98.1 Arthrodesis status; F17.210 Nicotine dependence, cigarettes, uncomplicated; I10 Essential (primary) hypertension; M51.16 Intervertebral disc disorders with radiculopathy, lumbar region; K59.00 Constipation, unspecified; M21.372 Foot drop, left foot

== ENCOUNTER 2018-01-06 14:36 | Inpatient (IN) ==
--- NOTE | 2018-01-06 15:03 | ED ---
HPI General Chief Complaint: Back Pain/Injury Stated Complaint: Dr sent/Medical Complaint Time Seen by Provider: 01/06/18 14:59 Source: patient Mode of arrival: ambulatory Limitations: no limitations History of Present Illness HPI Narrative: 47-year-old male patient with history of herniated disks in the back, previous spinal fusion done by Dr. Key, had been seen in the hospital by Dr. Key for lower back pains and concerns of nerve impingement by Dr. Key in the hospital a few weeks ago, seen in the office on Wednesday, and apparently has been having continued worsening of lower back pains or radiation down the left leg, numbness and paresthesias in the left leg and groin area according to patient and his , they had talked to Dr. Key's office today and was sent in for further evaluation.They state that Dr. Key is expecting them. Related Data Previous Rx's Medication Instructions Recorded cyclobenzaprine 10 mg PO TID PRN #90 tab 12/31/17 oxycodone-acetaminophen [Percocet] 1 tab PO Q4-6H PRN #30 tab 12/31/17 prednisone 10 mg PO DIRECTED #30 tab 12/31/17 Allergies Allergy/AdvReac Type Severity Reaction Status Date / Time No Known Allergies Allergy NONE Uncoded 01/06/18 15:01 Review of Systems ROS: all other systems reviewed are negative PMFSH History History Provided By: Patient Surgical History Surgical History History of back surgery (Acute) History of cholecystectomy (Acute) Hx of neck surgery (Acute) Social History Social History Substance History: No History of Abuse Second Hand Smoke Exposure: No Smoking Status: Current every day smoker Tobacco Type: Cigarettes How Often Do You Have a Drink Containing Alcohol: Never Recent Travel in [place] within the Last 8 Weeks: No Recent Out of Country Travel within the Last 8 Weeks: No Exam Narrative Exam Narrative: GENERAL:Well-developed middle-age male patient currently and mild distress. Awake and oriented 3. SKIN: Focused skin assessment warm/dry. HEAD: Atraumatic. Normocephalic. EYES: Pupils equal and round. No scleral icterus. No injection or drainage. ENT: No nasal bleeding or discharge. Mucous membranes pink and moist. NECK: Trachea midline. No JVD. CARDIOVASCULAR: Regular rate and rhythm. No murmur appreciated. RESPIRATORY: No accessory muscle use. Clear to auscultation. Breath sounds equal bilaterally. GASTROINTESTINAL: Abdomen soft, non-tender, nondistended. Hepatic and splenic margins not palpable. MUSCULOSKELETAL: No obvious deformities. No clubbing. No cyanosis. No edema. Decreased sensation to the left outer thigh area and perineal area. NEUROLOGICAL: Awake and alert. No obvious cranial nerve deficits. Motor grossly within normal limits. Normal speech. PSYCHIATRIC: Appropriate mood and affect; insight and judgment normal. Course Initial Documented Vital Signs Pulse Rate 86 01/06/18 14:40 Respiratory Rate 18 01/06/18 14:40 Blood Pressure 170/110 H 01/06/18 14:40 Pulse Oximetry 97 01/06/18 14:40 Last Documented Vital Signs Temperature 99.2 F 01/06/18 14:42 Pulse Rate 104 H 01/06/18 14:42 Respiratory Rate 20 01/06/18 14:42 Blood Pressure 194/105 H 01/06/18 14:42 Pulse Oximetry 97 01/06/18 14:42 Medical Decision Making MDM Narrative Medical decision making narrative: Case is discussed with Dr. Key who would like the patient to be admitted, once Decadron 4 mg given. He is planning to take the patient to the OR. Case was discussed with Dr. Barrientos for admission. Medical Screen Exam Complete: Yes Emergency Medical Condition: Yes Differential Diagnosis Differential Diagnosis: Decreased sensation to the left outer thigh area and perineal area.Past the quad equina syndrome versus lumbar radiculopathy versus muscle spasms per Discharge Plan Discharge Disposition Patient Disposition: 30 Still Patient Discharge Condition Condition: Stable Discharge Details Anticipated Discharge Date: 01/06/18 Diagnosis: Lumbar radiculopathy Physicians Team ED Provider: Jane Hernández Primary Care Provider: Candice Reis Rxs /Orders / Referrals /Forms Prescriptions: No Action oxycodone-acetaminophen [Percocet] 5-325 mg Tablet 1 tab PO Q4-6H PRN (Reason: Pain 3 to 10) Qty: 30 RF: 0 prednisone 10 mg Tablet 10 mg PO DIRECTED Qty: 30 RF: 0 cyclobenzaprine 5 mg Tablet 10 mg PO TID PRN (Reason: Muscle Spasm) Qty: 90 RF: 0 Discharge Instructions Patient Printed Instructions: Laminectomy (DC) Discharge Interventions Interventions: Vital Signs Last Done: 01/06/18 14:40 Status ED Status: With Doctor
[2018-01-06 16:37] LABS: Baso % (Auto) 0.2 % (0.0-2.0); Eos # (Auto) 0.2 th/mm3 (0.0-0.4); Eos % (Auto) 1.6 % (0.0-4.0); Hematocrit 51.1 % (39.0-51.0); Hemoglobin 17.7 gm/dL (13.0-17.0); Lymph # (Auto) 3.5 th/mm3 (1.0-4.8); Lymph % (Auto) 23.4 % (9.0-44.0); Mean Corpuscular HGB Conc 34.7 % (32.0-36.0); Mean Corpuscular Hemoglobin 30.1 pg (27.0-34.0); Mean Corpuscular Volume 86.8 fL (80.0-100.0); Mean Platelet Volume 9.9 fL (7.0-11.0); Neut # (Auto) 10.2 th/mm3 (1.8-7.7); Neut % (Auto) 67.8 % (16.0-70.0); Platelet Count 179 th/mm3 (150-450); Red Blood Count 5.89 mil/mm3 (4.50-5.90); Red Cell Distribution Width 13.1 % (11.6-17.2)
[2018-01-06] MEDS ORDERED: Acetaminophen 325 MG Tablet PO PRN (16:42)
[2018-01-06] MEDS ORDERED: Bisacodyl 10 MG Supp RECTAL PRN (16:42)
[2018-01-06] MEDS ORDERED: Morphine Inj 4 MG/ML Vial IV.PUSH PRN ×3 (16:48)
[2018-01-06] MEDS ORDERED: Naloxone Inj 0.4 MG/ML Vial IV.PUSH PRN (16:48)
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
[2018-01-06 16:53] LABS: Calcium 8.6 mg/dL (8.5-10.1); Carbon Dioxide 27.9 meq/L (21.0-32.0); Magnesium 2.4 mg/dL (1.5-2.5); Potassium 3.3 meq/L (3.5-5.1)
--- NOTE | 2018-01-06 17:26 | P.CONNS ---
History of Present Illness Service: neurosurgery Consult date: 01/06/18 Reason for Consult: Cauda equine syndrome Primary Care Provider: Candice Reis Chief Complaint: Back pain and injury with pain and weakness going down his left leg History of Present Illness: Mr. Echavarria is a 47 year old male who has a history of previous L5-S1 laminectomy, microdiscectomy in 2014. He had done very well following his surgery. On May of this year, he reports intermittent dull pain in the low back. The pain was becoming more frequent however. 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 He denies associated trauma. He reports his pain is located in across the lower lumbar region with pain radiating down his left leg posteriorly to the top of the foot. He rates the pain as a 8-9 out of 10. He also reports of loss of sensation, numbness as well as a left foot drop. He also complains of urinary dribbling and severe constipation despite multiple laxatives and stool softener. His white reports sexual dysfunction unable to have an erection as well as complaints of scrotal numbness. He underwent neurosurgical evaluation by Dr. Anne in [facility] on 12/31/17, and MRI L-spine obtained. Patient was discharged home with Medrol dosepak without any improvement. Has progressive moderate cauda equina syndrome and lumbar radiculopathy. neurosurgery consultation was requested Review of Systems Constitutional: Denies anorexia, Denies body ache(s), Denies chills, Denies daytime sleepiness, Denies excessive sweating, Denies fatigue, Denies fever(s), Denies headache(s), Denies increased appetite, Denies lack of energy, Denies malaise, Denies night sweats, Denies weakness, Denies weight gain, Denies weight loss, Denies other Eyes: Denies blind spots, Denies blurry vision, Denies bulging eyes, Denies change in vision, Denies double vision, Denies discharge, Denies dry eyes, Denies floaters, Denies irritation, Denies itchy eyes, Denies loss of vision, Denies pain, Denies requires corrective lenses, Denies sensitivity to light, Denies other Ears, Nose, Mouth, and Throat: Denies abnormal hearing, Denies bleeding gums, Denies bad breath, Denies change in voice, Denies dental pain, Denies difficulty swallowing, Denies dizziness, Denies dry mouth, Denies ear discharge , Denies ear pain, Denies facial pain, Denies headache(s), Denies hearing loss, Denies hoarseness, Denies lip swelling, Denies nosebleed, Denies mouth lesions, Denies mouth pain, Denies nasal congestion, Denies nasal discharge, Denies nasal obstruction, Denies nasal trauma, Denies neck lump, Denies neck pain, Denies nose pain, Denies pain with swallowing, Denies poor balance, Denies post nasal drip, Denies ringing in the ears, Denies sinus pain, Denies sinus pressure , Denies sore throat, Denies throat swelling, Denies tongue swelling, Denies other Cardiovascular: Denies chest pain, Denies chest pain at rest, Denies chest pain with activity, Denies excessive sweating, Denies fainting, Denies fast heart rate, Denies foot swelling, Denies generalized swelling, Denies irregular heart rhythm, Denies leg pain with activity, Denies leg sores, Denies leg swelling, Denies lightheadedness, Denies radiating jaw, neck or arm pain, Denies rapid, pounding, or irregular heartbeat, Denies shortness of breath, Denies shortness of breath with activity, Denies shortness of breath when lying down, Denies shortness of breath causing sudden awakening, Denies slow heart rate, Denies other Respiratory: Denies change in phlegm color, Denies chest congestion, Denies cough, Denies coughing up blood, Denies excessive phlegm production, Denies pain on inspiration, Denies pain with cough, Denies shortness of breath, Denies shortness of breath with activity, Denies snoring, Denies stridor, Denies wheezing, Denies other Gastrointestinal: Denies abdominal pain, Denies belching, Denies black, tarry stools, Denies bloating, Denies bright, red blood in stools, Denies change in bowel habits, Denies constant urge to pass stool, Denies change in stools, Denies coffee ground vomit, Denies constipation, Denies cramping, Denies difficulty swallowing, Denies excessive passing of gas, Denies feeling full early, Denies heartburn, Denies incontinent of stools, Denies loose stools, Denies nausea, Denies pain with swallowing, Denies vomiting, Denies vomiting blood, Denies other Genitourinary: Denies blood in semen, Denies blood in urine, Denies decreased urination, Denies difficulty urinating, Denies difficulty with ejaculations, Denies erectile dysfunction, Denies genital lesions, Denies genital pain, Denies painful urination, Denies side pain, Denies frequent nighttime urination , Denies painful ejaculations, Denies penile discharge, Denies scrotal swelling , Denies testicle lump, Denies testicle pain, Denies urinary frequency, Denies urinary hesitancy, Denies urinary incontinence, Denies urinary urgency, Denies other Musculoskeletal: Denies abnormal walking, Denies back pain, Denies body aches, Denies decreased muscle mass, Denies deformity, Denies joint pain, Denies joint swelling, Denies limited joint movement, Denies loss of height, Denies muscle cramps, Denies muscle weakness, Denies neck pain, Denies numbness, Denies radiating pain into limb, Denies stiffness, Denies tingling, Denies other Skin/Breast: Denies acne, Denies bleeding lesions, Denies boil, Denies breast swelling, Denies breast skin changes, Denies breast pain, Denies breast lump, Denies change in breast shape, Denies change in hair, Denies change in skin color, Denies changing lesions, Denies dry skin, Denies excessive hair growth, Denies hair loss, Denies itching, Denies lesions, Denies nail changes, Denies new lesions, Denies nipple discharge, Denies non-healing lesions, Denies redness , Denies sensitivity to light, Denies rash, Denies skin pain, Denies skin ulcer , Denies sores, Denies stretch mathews, Denies unusual bruising, Denies wounds, Denies yellowing of the skin, Denies other Neurologic: Denies abnormal hearing, Denies abnormal movements, Denies abnormal speech, Denies abnormal walking, Denies behavioral changes, Denies burning sensations, Denies confusion, Denies dizziness, Denies fainting, Denies frequent falls, Denies headache(s), Denies lack of coordination, Denies localized weakness, Denies loss of vision, Denies memory loss, Denies numbness, Denies other visual disturbances, Denies radiating pain, Denies restless legs, Denies convulsions, Denies seizure-like activity, Denies sensory deficit, Denies tingling, Denies tingling/numbness/burning sensations, Denies tremor(s), Denies unsteadiness, Denies weakness, Denies other Psychiatric: Denies abnormal sleep pattern, Denies anxiety, Denies behavioral changes, Denies change in appetite, Denies change in sex drive, Denies confusion , Denies depression, Denies difficulty concentrating, Denies hearing things others do not hear, Denies hopelessness, Denies irritability, Denies lack of enjoyment, Denies memory loss, Denies mood swings, Denies panic attacks, Denies paranoia, Denies seeing things others do not see, Denies sensing things others do not sense, Denies tactile hallucinations, Denies thoughts of hurting/killing others, Denies thoughts of hurting/killing yourself, Denies other Endocrine: Denies cold intolerance, Denies excessive sweating, Denies flushing, Denies heat intolerance, Denies increased hunger, Denies increased thirst, Denies increased urination, Denies rapid, pounding, or irregular heartbeat, Denies other Hematologic/Lymphatic: Denies easy bleeding, Denies easy bruising, Denies enlarged lymph nodes, Denies other Allergic/Immunologic: Denies GI upset with certain foods, Denies hives, Denies itchy eyes, Denies lip swelling, Denies seasonal runny nose, Denies throat swelling, Denies tongue swelling, Denies wheezing, Denies other PMFSH - History History Provided By: Patient - Medical History Medical History: Medical History (Last Reviewed 01/08/18 @ 14:14 by Darryl Key MD) Injury of left thumb Tobacco abuse - Surgical History Surgical History: Surgical History (Last Reviewed 01/08/18 @ 14:14 by Darryl Key MD) History of back surgery History of cholecystectomy Hx of neck surgery - Family History Family History: Family History (Last Reviewed 01/08/18 @ 14:14 by Darryl Key MD) Other Family history of hypertension - Tobacco History Second Hand Smoke Exposure: No Tobacco Use In Past 30 Days: Yes Smoking Status: Current every day smoker Tobacco Type: Cigarettes Packs Per Day: 2 - Alcohol History How Often Do You Have a Drink Containing Alcohol: Never - Substance Use History Substance History: No History of Abuse - Travel History History of Recent Travel: Yes (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[employer]) Recent Travel in the [facility] Within the Last 8 Weeks: No Recent Travel Out of the Country Within the Last 8 Weeks: No - Immunization History Tetanus Immunization: <5 Years Hx Influenza Vaccine This Season: No Medications and Allergies Active Medications: Active Medications Acetaminophen (Tylenol) 650 mg PO Q4H PRN PRN Reason: Temp > 100.4 Al Hydroxide/Mg Hydroxide (Milk Of Magnesia Liq) 30 ml PO Q12H PRN PRN Reason: Mild Constipation Bisacodyl (Dulcolax Supp) 10 mg RECTAL DAILY PRN PRN Reason: SEVERE CONSITIPATION Cyclobenzaprine HCl (Flexeril) 10 mg PO Q8HR ROMULO Dexamethasone Sodium Phosphate (Decadron Inj) 4 mg IV.PUSH Q8HR ROMULO Famotidine (Pepcid Pf Inj) 20 mg IV.PUSH Q12HR ROMULO Lactated Ringer's (Lr 1000 Ml Inj) 1,000 mls @ 100 mls/hr IV.CONT .Q10H ROMULO Lactulose (Lactulose Liq) 30 ml PO DAILY PRN PRN Reason: SEVERE CONSITIPATION Morphine Sulfate (Morphine Inj) 2 mg IV.PUSH Q3H PRN PRN Reason: PAIN 3-5; IF UABLE TO TAKE PO Morphine Sulfate (Morphine Inj) 4 mg IV.PUSH Q3H PRN PRN Reason: PAIN 6-10;IF UNABLE TO TAKE PO Morphine Sulfate (Morphine Inj) 4 mg IV.PUSH Q3H PRN PRN Reason: BREAKTHROUGH PAIN Naloxone HCl (Narcan Inj) 0.4 mg IV.PUSH UNSCH PRN PRN Reason: SEE LABEL COMMENTS Nicotine (Habitrol 21 Mg Patch.24 Hr) 1 patch T-DERMAL DAILY ROMULO Ondansetron HCl (Zofran Inj) 4 mg IV.PUSH Q6H PRN PRN Reason: NAUSEA OR VOMITING Oxycodone/Acetaminophen (Percocet 10/325 Mg) 1 tab PO Q6H PRN PRN Reason: PAIN SCALE 6 TO 10 Oxycodone/Acetaminophen (Percocet 5/325 Mg) 1 tab PO Q6H PRN PRN Reason: PAIN SCALE 3 TO 5 Patch Removal (Remove Old Patch) 1 each T-DERMAL DAILY ROMULO Senna/Docusate Sodium (Argelia-Colace) 1 tab PO BID ROMULO Sennosides (Senokot) 17.2 mg PO Q12H PRN PRN Reason: Moderate Constipation Zolpidem Tartrate (Ambien) 5 mg PO HS PRN PRN Reason: INSOMNIA Allergies Allergy/AdvReac Type Severity Reaction Status Date / Time No Known Allergies Allergy NONE Uncoded 01/06/18 15:01 Exam Vital signs: Vital Signs 01/06/18 14:40 01/06/18 14:42 01/06/18 16:15 Temperature 99.2 F Pulse Rate 86 104 H 79 Respiratory Rate 18 20 16 Blood Pressure 170/110 H 194/105 H 166/95 H Pulse Oximetry 97 97 97 Intake & Output 01/05/18 01/06/18 01/06/18 18:59 06:59 18:59 Weight 84.368 kg Narrative: Mr. Echavarria appearing uncomfortable, in no obvious distress during examination. Neuro: Awake, alert and oriented. Speech is clear and fluent. Can follow single and multi-step commands without apraxia. Cranial nerve examination: pupils equal , round, and reactive to light. Extra-ocular movements are intact with normal convergence. Facial motor are normal and symmetrical. Other cranial nerves are intact. HEENT: Normocephalic, atraumatic. Nonicteric sclera. No injection or drainage. No nasal bleeding or discharge. Mucous membranes pink and moist. Neck: No massess, no JVD. Trachea midline. Soft, supple, no meningismus or nuchal rigidity. Normal range of motion without pain Musculoskeletal: No peripheral edema. No obvious deformities to extremities. No clubbing. 5/5 in all muscle groups of both upper extremities. In the lower extremities, strength is 5-/5 in both iliopsoas, quadriceps, hamstrings, gastrocnemius, right tibialis anterior, and extensor hallucis longus, 4/5 left tibialis anterior. Sensory examination is decreased following left L5 distribution, otherwise intact light touch in both the upper and lower extremities Deep tendon reflexes in the lower extremities, the patellar and Achilles are 1+ , bilaterally. There is a bilateral plantar flexion response. Hoffmanns sign is negative. There is no clonus. Cerebellar: intact finger to nose bilaterally Lumbar: no obvious deformities, mild swelling noted over the left lower thoracolumbar region with tenderness. Gait: Antalgic, mildly broad based, and limps due to pain. Lungs: clear to auscultate bilaterally, nonlabored breathing on room air, no wheezing, no accessory muscle use. Heart: regular rate and rhythm Skin: warm and dry, no cyanosis or erythema. Results - Laboratory Findings CBC and BMP: 01/08/18 05:31 01/08/18 05:31 Abnormal lab findings: Abnormal Labs 01/06/18 01/06/18 16:10 16:10 WBC 15.0 H Hgb 17.7 H Hct 51.1 H Neut # (Auto) 10.2 H Rabun # (Auto) 1.0 H Potassium 3.3 L BUN 21 H Estimated GFR 72 L Assessment and Plan - Plan 47 year ols male with cauda equina syndrome with radiculopathy going down left lower extremity I reviewed his MRI and CT MRI lumbar spine [facility] 12/31/17 FINDINGS: The most caudal-appearing lumbar vertebra is numbered as L5. Vertebra: Homogeneous signal. Normal alignment. Conus: Normal level and configuration. Post Contrast: No abnormal areas of contrast enhancement are seen. T12-L1: The thecal sac has a normal diameter. No evidence of disc bulge or protrusion. The neural foramina are patent bilaterally. L1-L2: The thecal sac has a normal diameter. No evidence of disc bulge or protrusion. The neural foramina are patent bilaterally. L2-L3: The thecal sac has a normal diameter. No evidence of disc bulge or protrusion. The neural foramina are patent bilaterally. L3-L4: There is a mild central to right lateral recess disc protrusion. There continues to be CSF around the nerve roots. The neural foramina are patent bilaterally. L4-L5: There is a mild to moderate central to left lateral recess disc protrusion causing mild impression on the anterior left side of thecal sac. This abuts the left L5 nerve root at the lateral recess level. There is some enhancement in the epidural space around the disc changes. The patient appears to be status post left hemilaminectomy. There is moderate facet hypertrophy being worse on the left. The neural foramina are grossly patent. L5-S1: The disc demonstrates decreased signal and minimal loss of height. There is some focal bright signal posterior left lateral disc margin with enhancement that may represent post surgical change. There is epidural scarring seen is enhancement seen at the left lateral epidural space and the anterior left epidural space surrounding the left S1 nerve root. The thecal sac has a normal diameter. No evidence of disc bulge or protrusion. The neural foramina are patent bilaterally. There is mild to moderate facet hypertrophy. MRI thoracic spine 12/31/17 [place] Mild degenerative change. Examination otherwise within normal limits for age. CT Abdomen/Pelvis 12/31/17 [place] CONCLUSION: 1. No acute abdominal or pelvic abnormality. 2. Contrast within the renal collecting systems from the prior MRI examination. 3. Degenerative change in the lumbar spine. His MRI findings correlate with his clinical symptoms. He has failed to improve with conservative treatment including ice, heat, physical therapy exercises, TEEN unit, antiinflammatories and muscle relaxants. He understands that a surgical procedure should be considered as a last resort. Unfortunately, his symptoms are getting worse and continue to affect her activities of daily living. I discussed with him the alternative of continuing nonsurgical treatment with further pain management and physical therapy, analgesics, and antiinflammatories , versus consideration to a surgical decompression with a right L4-5 laminectomy , mesiofacetectomy, foraminotomy with microsurgical resection of the disk, interbody arthrodesis using PEEK cage with autologous bone graft, transpedicular screw fixation, posterolateral fusion using bone graft. Using His radiologic studies, anatomical model(s) I have discussed the details of the surgical decompression including the [id number] procedure, its indications, alternatives, risks, and potential complications. Risks and potential complications include, but are not limited to, infection, blood loss, CSF leak, partial or complete loss of sight in one or both eyes, paresis, paralysis, permanent pain, hoarseness or difficulty swallowing, loss of bowel or bladder function, complications from anesthesia, blood clot, stroke, myocardial infarction, or even . I explained to Mr Echavarria that before reaching a decision in regards to surgery , she should consider the alternatives, including the possibility of no treatment. He understands. All questions have been answered, no guaranties were given. He is a smoker and he is at increase risk for delayed healing of his wound, anesthetic complications, or developement of a pseudoarthrosis. Tobacco abuse recommend smoking cessation will place on a NicoDerm patch. However, this is a neurosurgical urgency and will proceed with surgery to avopid further damage DVT prophylaxis with SCDs and ALONDRA hose GI prophylaxis with Pepcid Acute on chronic back pain Point Value = 1 Point Value = 2 Point Value = 3 Point Value = 5 Age 41-60 Minor surgery BMI > 25 kg/m2 Swollen legs Varicose veins or History of unexplained or recurrent spontaneous Oral contraceptives or hormone replacement Sepsis (< 1 month) Serious lung disease, including pneumonia (< 1 month) Abnormal pulmonary function Acute myocardial infarction Congestive heart failure (< 1 month) History of inflammatory bowel disease Medical patient at bed rest Age 61-74 Arthroscopic surgery Major open surgery (> 45 min) Laparoscopic surgery (> 45 min) Malignancy Confined to bed (> 72 hours) Immobilizing plaster cast Central venous access Age >= 75 History of VTE Family history of VTE Factor V Leiden Prothrombin [id number] Lupus anticoagulant Anticardiolipin antibodies Elevated serum homocysteine Heparin-induced thrombocytopenia Other congenital or acquired thrombophilia Stroke (< 1 month) Elective arthroplasty Hip, pelvis, or leg fracture Acute spinal cord injury (< 1 month) Prophylaxis Regimen: Total Risk Factor Score Risk Level Prophylaxis Regimen 0-1 Low Early ambulation 2 Moderate Order ONE of the following: *Sequential Compression Device (SCD) *Heparin 5000 units SQ BID 3-4 Higher Order ONE of the following medications: *Heparin 5000 units SQ TID *Enoxaparin/Lovenox 40 mg SQ daily (WT < 150 kg, CrCl > 30 mL/min) *Enoxaparin/Lovenox 30 mg SQ daily (WT < 150 kg, CrCl > 10-29 mL/min) *Enoxaparin/Lovenox 30 mg SQ BID (WT < 150 kg, CrCl > 30 mL/min) AND/OR *Sequential Compression Device (SCD) 5 or more Highest Order ONE of the following medications: *Heparin 5000 units SQ TID (Preferred with Epidurals) *Enoxaparin/Lovenox 40 mg SQ daily (WT < 150 kg, CrCl > 30 mL/min) *Enoxaparin/Lovenox 30 mg SQ daily (WT < 150 kg, CrCl > 10-29 mL/min) *Enoxaparin/Lovenox 30 mg SQ BID (WT < 150 kg, CrCl > 30 mL/min) AND *Sequential Compression Device (SCD)
[2018-01-06] MEDS: oxyCODONE/Acetaminophen 10/325 Tablet PO PRN (18:18)
--- NOTE | 2018-01-06 19:17 | XR ---
EXAM DATE: 01/06/2018 7:03 PM EDT AGE/SEX: 47 years / Male INDICATIONS: Cough, difficulty breathing, back pain. CLINICAL DATA: This is the patient's initial encounter. Patient reports that signs and symptoms have been present for 2 days and indicates a pain score of 10/10. MEDICAL/SURGICAL HISTORY: None. Fusion, cervical. None. None. COMPARISON: No prior exams available for comparison. FINDINGS: A single AP view of the chest demonstrates the lungs to be symmetrically aerated without evidence of mass, infiltrate or effusion. No evidence of pneumothorax. The cardiomediastinal contours are unrema rkable. Osseous structures are intact. CONCLUSION: The lungs are clear. Electronically signed by: Orville Justice MD 01/06/2018 7:16 PM EDT
[2018-01-06] MEDS ORDERED: Zolpidem Tartrate 5 MG Tablet PO PRN (21:00)
[2018-01-06] MEDS: Famotidine PF Inj 20 MG/2 ML Vial IV.PUSH SCH (21:52)
[2018-01-06] MEDS: Senna/Docusate Sodium 8.6/50 MG Tablet PO SCH (21:53)
[2018-01-07] MEDS: oxyCODONE/Acetaminophen 10/325 Tablet PO PRN ×2 (00:42→06:44)
[2018-01-07] MEDS ORDERED: Chlorhexidine Gluconate 2% 1 Pack (2 Cloths) TOPICAL SCH (01:45)
[2018-01-07] MEDS ORDERED: Sodium Chlor 0.9% Inj 500 ML IV.SIG SCH (02:00)
[2018-01-07 04:51] LABS: Baso % (Auto) 0.2 % (0.0-2.0); Eos % (Auto) 0.1 % (0.0-4.0); Hematocrit 49.3 % (39.0-51.0); Hemoglobin 17.6 gm/dL (13.0-17.0); Lymph % (Auto) 7.3 % (9.0-44.0); Mean Corpuscular HGB Conc 35.6 % (32.0-36.0); Mean Corpuscular Hemoglobin 30.5 pg (27.0-34.0); Mean Corpuscular Volume 85.6 fL (80.0-100.0); Mean Platelet Volume 9.9 fL (7.0-11.0); Mono # (Auto) 0.4 th/mm3 (0.0-0.9); Mono % (Auto) 2.6 % (0.0-8.0); Neut # (Auto) 12.9 th/mm3 (1.8-7.7); Neut % (Auto) 89.8 % (16.0-70.0); Platelet Count 179 th/mm3 (150-450); Red Blood Count 5.76 mil/mm3 (4.50-5.90); Red Cell Distribution Width 13.2 % (11.6-17.2); White Blood Count 14.4 th/mm3 (4.0-11.0)
[2018-01-07 04:57] LABS: Prothrombin Time 10.5 sec (9.8-11.6)
[2018-01-07 05:13] LABS: Alanine Aminotransferase 24 U/L (12-78); Albumin 3.9 g/dL (3.4-5.0); Anion Gap 8 meq/L (5-15); Aspartate Aminotransferase 9 U/L (15-37); Blood Urea Nitrogen 21 mg/dL (7-18); Calcium 8.4 mg/dL (8.5-10.1); Carbon Dioxide 26.4 meq/L (21.0-32.0); Chloride 105 meq/L (98-107); Glomerular Filtration Rate 70 mL/min (>89); Glucose,Random 132 mg/dL (74-106); Magnesium 2.3 mg/dL (1.5-2.5); Potassium 3.9 meq/L (3.5-5.1); Sodium 139 meq/L (136-145)
[2018-01-07 05:22] LABS: Alkaline Phosphatase 51 U/L (45-117); Phosphorus 2.3 mg/dL (2.5-4.9)
[2018-01-07] MEDS ORDERED: methylPREDNISolone acetate 40 MG/ML VIAL ONE (07:20)
[2018-01-07] MEDS ORDERED: Bupivacaine/Epinephrine Inj 0.25% 50 ML Vial ONE (07:20)
[2018-01-07] MEDS ORDERED: Scopalamine 1.5 MG Patch T-DERMAL ONE (08:12)
[2018-01-07] MEDS ORDERED: Dexmedetomidine Inj 200 MCG/2 ML Vial ONE (08:16)
[2018-01-07] MEDS ORDERED: Bisacodyl 10 MG Supp RECTAL PRN (09:33)
[2018-01-07] MEDS ORDERED: Naloxone Inj 0.4 MG/ML Vial IV.PUSH PRN ×3 (09:35→09:57)
[2018-01-07] MEDS: Gelatin Size 100 Topical Foam ONE ×2 (09:56→15:25)
[2018-01-07] MEDS: Thrombin Topical Soln 5,000 UNIT Vial TOPICAL ONE ×2 (09:56→15:26)
[2018-01-07] MEDS ORDERED: ceFAZolin 2 GM Premix Inj 2 GM/50 ML PIGGYBACK IV.SIG SCH (10:00)
[2018-01-07] MEDS ORDERED: Neostigmine Inj 5 MG/5 ML Syringe IV.PUSH ONE (12:00)
[2018-01-07] MEDS ORDERED: Glycopyrrolate Inj 1 MG/5 ML Syringe IV.PUSH ONE (12:00)
[2018-01-07] MEDS ORDERED: Lidocaine PF 1% Inj 5 ML Syringe INFILTRATN ONE (12:00)
--- NOTE | 2018-01-07 12:38 | P.OP ---
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 Microsurgical dissection Anesthesia: GINAA Surgeon: Darryl Key MD Ceramic Maker Demonstrator: ZOHREH Pathology: none sent Operation and Findings: INDICATIONS FOR THE SURGICAL PROCEDURE Mr Echavarria is a 47 year old male who presented with intractable mechanical back pain and lower extremity L5 radiculopathy with clinical evidence of cauda equine syndrome.He has failed maximum nonsurgical management and he was getting worse. A surgical decompression and arthrodesis were indicated as a last resort. The [id number] details of the procedure, indications, alternatives, risks and potential complications were fully discussed with the patient. The patient fully understood. All the questions were answered. No guarantees were given. The patient voiced requesting the procedure and provided informed consents. The patient was offered the alternative of delaying the procedure and continuing with nonsurgical management. DETAILS OF THE SURGICAL PROCEDURE Prior to the procedure, the surgical incision was marked in the preoperative surgical holding room, and the procedure, risks, and potential complications revisited with the patient. Placement of electrodes for intraoperative neurophysiological monitoring was completed. The patient was taken to the operative room, and following induction of general anesthesia, endotracheal intubation was performed. A Curran catheter, bilateral ALONDRA hose and sequential compression devices were placed and kept throughout the procedure. The patient was positioned prone, over a Osmany table over a bolsters. All pressure in the preoperative surgical holding room points were carefully padded with eggcrate and gel mattress. The eyes were tapped shut after ointment was applied by the anesthesiologist to prevent corneal abrasion. A Eleanor hugger was placed over the expossed lower body to maintain control of the core body temperature. The electrophysiological team placed the needles and electrodes in their proper location and baseline SSEP's and EMG potentials were registered. The entrance to each pedicles was marked using a C arm. The lumbar region was prepped and draped in the usual sterile fashion. The surgical procedure was performed in several steps as follow: SURGICAL APPROACH Once the patient was positioned, a localizing cross-table lateral x-ray was performed with a C-arm. Two paramedian small incisions were outlined on the skin approximately 3cm from the midline. The skin incisions were made with a # 10 blade. Small bleeders were controlled with the cautery. The dissection was then carried out into deper planes and through the thoracolumbar fascia with a Bovie. The intermuscular septum was identified and the myscles were blunted dissected along the septum. The facets and transverse process of L4 and L5 were exposed and the proper anatomical landmarks were identidied. A microsurgical self-retaining retractor was placed on the incision, and a localizing lateralizing cross-table x-ray was performed with an instrument underneath a lamina of the lumbar spine. INSTRUMENTAL FIXATION At this point in the procedure, placement of bilateral transpedicular screws was necessary for stabilization of the spine. Initially, the entry point for the screw was selected anatomically at the junction of the facet, with the transverse process, and the pars interarticularis at L4 and L5. This was started with a Giamshetti needle followed by the use of a jimenez wire. A tap was used to create the threads for the screws. Finally bilateral transpedicular screws were carefully placed bilaterally at L4, and L5 under fluoroscopic visualization. An appropriate purchase was achieved with all screws. The position of each screw was assessed anatomically with an AP, lateral , oblique Xrays. An intraoperative scan view of the spine was then performed using the iso-centric c-arm. Each screw was then assessed electrophysiologically stimulating each screw with a nerve stimulator. SURGICAL DECOMPRESSION There was significant mass effect with compression of the neural structures. In order to relieve neural compression, it was necessary to perform a decompressive laminectomy, with decompression of the spinal canal and bilateral lateral recesses. Note that the scope of such decompression was significantly more extensive than the minimal exposure necessary to perform an interbody fusion, as there was extreme facet arthropathy with severe scar tissue and extensive disk protusions resulting in severe stenosis cause by the hyperthrophic joint facets. At this point in the procedure the operating microscope was draped in the usual sterile fashion and brought to the field. The rest of the surgical procedure was performed using microsurgical dissection technique with exception of the closure. Once the level was confirmed, the margins of the prior laminectomy were exposed. There was extensive scar tissue from the prior surgery. Once the bony margins were exposed, a laminectomy was performed extending slightly the prior opening using the TPS drill with an AM-8 drill bit. A medial facetectomy was performed and the superior free border of the ligamentum flavum was dissected with a ligament dissector and removed with a thin footplate 2 mm Kerrison. The scar tssue was carefully dissected from the dural sac and the L5 nerve root was identified and followed towards its exit in the foramen. A foraminotomy was done. Epidural veins located laterally to the dural sac were coagulated with the bipolar cautery, and then incised using microscissors. Gentle medial retraction of the dural sac allowed me to expose the disc space for the discectomy. A redo microdiscectomy was done allowing for an excellent decompression of the neural structures was achieved. Increased motion was noted thorough the procedure, which was consistent with mechanical instability. INTERBODY ARTHRODHESIS In order to correct the narrowing of the disk space and maintain distraction of the space, and to achieve a solid interbody fusion, it was necessary the insertion of an interbody device into the disk space. Otherwise, the disk space would collapse, compromising the result of the surgical procedure. At this point of the procedure, the annulus fibrosus of the disk was carefully coagulated with a bipolar cautery and incised using an 11 bladed knife. Then, a microdiscectomy was carried out in a standard fashion using a combination of straight and up-biting pituitary forceps. A reverse angle curette was applied underneath the posterior longitudinal ligament, and used to push the disk fragments into the disk space, so they can be safely removed with a pituitary forceps. Once the discectomy was completed, it was necessary to decorticate the endplates, in order to eliminate the cartilaginous endplate and to expose healthy bone appropriate to perform the interbody fusion. The endplates at L4- L5 were then thoroughly decorticated using increasing size bone maikel and ring curets, eliminating the cartilaginous fragments from both, the superior and inferior endplates. A disk space distractor was applied to the pedicle screws and gentle distraction was applied. This maneuver was assisted by the use of a disk distractor. Increased motility was noted at the disk, which was consistent with instability due to facet arthropathy. Once a thorough preparation of the disk space was achieved, the disk space was irrigated with antibiotic solution, and the interbody fusion was performed by carefully impacting an expandable PPEK cage filled with autologous iliac crest bone graft. The cage was cartefully expanded. A solid position of the cage with good purchase was achieved. The position of the cage was assessed anatomically with a probe and radiologically with the C-arm. POSTEROLATERAL FUSION The posterolateral fusion is a critical component to the procedure, to prevent future fatigue and failure of the instrumental fixation. Initially, the transverse processes of the vertebral bodies, lateral surface of the facets and the lateral gutters of the spine were carefully cleaned, eliminating all soft tissue and muscle attachments. The area was then irrigated with a large amount of antibiotic solution. Subsequently, the transverse processes, lateral surface of the facets, and lateral gutters of the spine were thoroughly decorticated using the TPS drill with a 5mm cutting ton, exposing cancellous bone, in preparation for the posterolateral fusion. The incision was again irrigated with antibiotic solution. Then, the posterolateral fusion was then performed by carefully packing the lateral gutters of the spine at L4-L5 with autologous bone combined with demineralized bone matrix. I packed as much bone as possible. COMPLETION OF THE INSTRUMENTATION AND CLOSURE The rods were brought to the field, applied to all the screws, and the screw caps were sequentially applied. Compression was performed between the pedicle screws, and final tightening of the screws was completed using a torque wrench. The incision was again thoroughly irrigated with several liters of antibiotic solution, and hemostasis secured with the bipolar cautery. A Valsalva Maneuver performed by the anesthesiologist failed to show any evidence of cerebrospinal fluid leak or bleeding. A 7 mm Osmany-Scruggs drain was left in the epidural space and externalized through a separate stab incision. The incision was then closed in planes. 0 Vicryl was used in an interrupted fashion to close the thoracolumbar fascia and the superficial fascia. The subcutaneous tissue was then approximated using 3-0 Vicryl in an interrupted fashion. Special care was taken to avoid space. The skin was then closed with 4-0 Vicryl in a running, subcuticular fashion. Dermabond was applied to the skin. Each plane of closure was irrigated with antibiotic solution. At the end of the procedure the sponge, needle and instrument counts were all correct. Estimated blood loss was 200 cc. No blood transfusion was given. The entire procedure was performed using continuous electrophysiological monitoring of the somatosensorial evoked potentials and EMG. The patient received prophylactic antibiotics. The patient was then extubated and transferred to the recovery room in stable condition.
--- NOTE | 2018-01-07 13:06 | XR ---
EXAM DATE: 01/07/2018 12:50 PM EDT AGE/SEX: 47 years / Male INDICATIONS: Fusion L4,L5 with screws and rods placement. CLINICAL DATA: This is the patient's initial encounter. Patient reports that signs and symptoms have been present for 1 day and indicates a pain score of Nonresponsive. MEDICAL/SURGICAL HISTORY: None. Cholecystectomy. Fusion, cervical. Discectomy, lumbar. COMPARISON: No prior exams available for comparison. FINDINGS: Transpedicular screws traverse the bodies ofL4-L5 with posterior stabilization hardware in place in a ddition to anterior fusion at this level. CONCLUSION: Intact postsurgical changes Electronically signed by: Nic Cunningham MD 01/07/2018 1:05 PM EDT
[2018-01-07] MEDS ORDERED: fentaNYL Citrate Inj 100 MCG/2 ML Ampul ONE (13:26)
[2018-01-07] MEDS ORDERED: *morphine SULFATE 10 MG/ML PERIprocedure ONLY ONE (13:31)
[2018-01-07 13:36] LABS: Hemoglobin A1c 5.2 % (4.3-6.0)
[2018-01-07] MEDS: HYDROmorphone PCA Inj 6 MG/30 ML PCA.VIAL PCA PRN ×2 (13:39→21:41)
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
[2018-01-07] MEDS: Famotidine PF Inj 20 MG/2 ML Vial IV.PUSH SCH ×2 (15:26→21:04)
[2018-01-07] MEDS: Senna/Docusate Sodium 8.6/50 MG Tablet PO SCH ×2 (15:28→21:04)
[2018-01-07] MEDS: Sod Chloride 0.9% Inj 1,000 ML IV.SIG SCH (15:59)
[2018-01-07] MEDS: ceFAZolin 2 GM Premix Inj 2 GM/100 ML BAG IV.SIG SCH (16:02)
[2018-01-08] MEDS: ceFAZolin 2 GM Premix Inj 2 GM/100 ML BAG IV.SIG SCH ×2 (01:34→06:08)
[2018-01-08] MEDS: Sod Chloride 0.9% Inj 1,000 ML IV.SIG SCH ×3 (01:36→21:44)
[2018-01-08 06:25] LABS: Baso % (Auto) 0.1 % (0.0-2.0); Hematocrit 45.9 % (39.0-51.0); Lymph # (Auto) 1.2 th/mm3 (1.0-4.8); Lymph % (Auto) 5.5 % (9.0-44.0); Mean Corpuscular HGB Conc 34.8 % (32.0-36.0); Mean Corpuscular Hemoglobin 30.1 pg (27.0-34.0); Mean Corpuscular Volume 86.7 fL (80.0-100.0); Mean Platelet Volume 10.4 fL (7.0-11.0); Mono # (Auto) 1.1 th/mm3 (0.0-0.9); Mono % (Auto) 5.2 % (0.0-8.0); Neut # (Auto) 19.2 th/mm3 (1.8-7.7); Neut % (Auto) 89.2 % (16.0-70.0); Platelet Count 167 th/mm3 (150-450); Red Blood Count 5.29 mil/mm3 (4.50-5.90); Red Cell Distribution Width 13.1 % (11.6-17.2); White Blood Count 21.5 th/mm3 (4.0-11.0)
[2018-01-08] MEDS: HYDROmorphone PCA Inj 6 MG/30 ML PCA.VIAL PCA PRN ×3 (06:34→18:14)
[2018-01-08 07:14] LABS: Alanine Aminotransferase 27 U/L (12-78); Albumin 3.6 g/dL (3.4-5.0); Alkaline Phosphatase 52 U/L (45-117); Anion Gap 7 meq/L (5-15); Aspartate Aminotransferase 47 U/L (15-37); Blood Urea Nitrogen 16 mg/dL (7-18); Calcium 8.2 mg/dL (8.5-10.1); Carbon Dioxide 28.1 meq/L (21.0-32.0); Chloride 104 meq/L (98-107); Glomerular Filtration Rate Greater Than 89 mL/min (>89); Glucose,Random 143 mg/dL (74-106); Magnesium 2.1 mg/dL (1.5-2.5); Phosphorus 2.8 mg/dL (2.5-4.9); Sodium 139 meq/L (136-145); Total Protein 6.6 g/dL (6.4-8.2)
[2018-01-08] MEDS: Senna/Docusate Sodium 8.6/50 MG Tablet PO SCH ×2 (07:55→21:43)
[2018-01-08] MEDS: Famotidine PF Inj 20 MG/2 ML Vial IV.PUSH SCH ×2 (07:55→21:43)
[2018-01-08] MEDS ORDERED: Magnesium Citrate Liq 300 ML Bottle PO ONE (10:11)
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
--- NOTE | 2018-01-08 12:19 | P.PNNS ---
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 Microsurgical dissection POD 1, doing well, surgical pain controlled, radicular pain improved Physical Exam Vital signs: Vital Signs 01/07/18 12:54 01/07/18 12:55 01/07/18 13:00 Temperature 97.5 F L Pulse Rate 83 76 Respiratory Rate 16 16 Blood Pressure 147/73 H 145/77 H Pulse Oximetry 97 95 97 01/07/18 13:15 01/07/18 13:30 01/07/18 13:45 Temperature Pulse Rate 79 80 82 Respiratory Rate 16 16 15 Blood Pressure 139/77 142/80 H 148/79 H Pulse Oximetry 01/07/18 14:00 01/07/18 14:10 01/07/18 18:49 Temperature 97.6 F Pulse Rate 81 80 Respiratory Rate 15 16 18 Blood Pressure 146/86 H 125/74 Pulse Oximetry 97 01/07/18 19:27 01/07/18 20:00 01/08/18 00:00 Temperature 98.5 F 98.4 F Pulse Rate 84 81 Respiratory Rate 20 18 16 Blood Pressure 154/85 H 141/79 H Pulse Oximetry 97 97 01/08/18 04:00 01/08/18 08:00 01/08/18 08:17 Temperature 98.5 F 97.8 F Pulse Rate 83 91 H Respiratory Rate 16 17 10 L Blood Pressure 148/80 H 198/104 H Pulse Oximetry 97 98 01/08/18 11:24 Temperature 97.3 F L Pulse Rate 67 Respiratory Rate 18 Blood Pressure 194/99 H Pulse Oximetry 98 Intake & Output 01/07/18 01/08/18 01/08/18 18:59 06:59 18:59 Intake Total 1900 / 1900 100 / 100 1100 / 1100 Output Total 885 / 885 70 / 70 4500 / 4500 Balance 1015 / 1015 30 / 30 -3400 / -3400 Weight 89 kg Intake: IV 100 / 100 100 / 100 1100 / 1100 NS Inj 1,000 ML @ 100 mls/hr IV 1000 / 1000 .SIG .Q10H [facility] Rx#:[id number] Ancef 2 GM Premix Inj 2 gm In 100 / 100 100 / 100 100 / 100 100 ml @ 200 mls/hr IV.SIG Q8H [facility] Rx#:[id number] Anesthesia Amount 1800 / 1800 Output: Estimated Blood Loss 200 / 200 Urine Amount (Catheter) 650 / 650 4500 / 4500 Indwelling Urethral Catheter 150 / 150 4500 / 4500 URE 500 / 500 Wound Drainage 35 / 35 70 / 70 Lower Medial Back 35 / 35 70 / 70 Other: Date of Last Bowel Movement 01/04/18 01/04/18 Narrative: awake, alert, NAD, comfortable moving all major muscle groups of LE well - Urinary Catheter Management Indwelling Urethral Catheter Cath placed during this visit: no URE Cath placed during this visit: no Reason for continuing: Hourly intake/output Assessment and Plan - Plan Assessment s/p L4-L5 laminectomy, interbody arthrodesis using PEEK cage and autologous bone graft, L4-L5 instrumental fixation using transpedicular screws and rods, 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 Microsurgical dissection 01/07/18 plan: doing well cont HOME ENERGY RATER for postoperative pain control dc hu PT, mobilize with LSO brace scds and teds, protonix
--- NOTE | 2018-01-08 17:32 | ECG ---
Date Performed: 01/06/2018 Time Performed: 21:30:53 PTAGE: 47 years EKG: Sinus rhythm NORMAL ECG PREVIOUS TRACING : 03/06/2015 16.49 DOCTOR: Yesenia Martin Interpretating Date/Time 01/08/2018 17:28:57
[2018-01-09] MEDS: HYDROmorphone PCA Inj 6 MG/30 ML PCA.VIAL PCA PRN ×2 (01:37→11:29)
[2018-01-09] MEDS: oxyCODONE/Acetaminophen 10/325 Tablet PO PRN ×2 (05:23→21:12)
[2018-01-09 05:51] LABS: Eos % (Auto) 0.1 % (0.0-4.0); Hematocrit 40.8 % (39.0-51.0); Hemoglobin 14.7 gm/dL (13.0-17.0); Mean Corpuscular Hemoglobin 30.8 pg (27.0-34.0); Mean Corpuscular Volume 85.5 fL (80.0-100.0); Mean Platelet Volume 9.9 fL (7.0-11.0); Mono # (Auto) 1.2 th/mm3 (0.0-0.9); Neut # (Auto) 12.5 th/mm3 (1.8-7.7); Neut % (Auto) 84.9 % (16.0-70.0); Platelet Count 160 th/mm3 (150-450); Red Blood Count 4.77 mil/mm3 (4.50-5.90); Red Cell Distribution Width 12.9 % (11.6-17.2); White Blood Count 14.8 th/mm3 (4.0-11.0)
[2018-01-09 06:17] LABS: Alanine Aminotransferase 27 U/L (12-78); Albumin 3.2 g/dL (3.4-5.0); Anion Gap 7 meq/L (5-15); Aspartate Aminotransferase 40 U/L (15-37); Blood Urea Nitrogen 13 mg/dL (7-18); Calcium 8.1 mg/dL (8.5-10.1); Carbon Dioxide 32.6 meq/L (21.0-32.0); Chloride 100 meq/L (98-107); Glomerular Filtration Rate Greater Than 89 mL/min (>89); Glucose,Random 164 mg/dL (74-106); Magnesium 2.5 mg/dL (1.5-2.5); Potassium 3.9 meq/L (3.5-5.1); Sodium 140 meq/L (136-145)
[2018-01-09 06:19] LABS: Alkaline Phosphatase 46 U/L (45-117)
[2018-01-09 08:33] LABS: Lymphocytes 5 % (9-44); Metamyelocytes 1 % (0-1); Monocytes 8 % (0-8); Platelet Estimate Normal (Normal); Platelet Morphology Normal (Normal)
[2018-01-09] MEDS: Famotidine PF Inj 20 MG/2 ML Vial IV.PUSH SCH ×2 (09:13→21:12)
[2018-01-09] MEDS: Senna/Docusate Sodium 8.6/50 MG Tablet PO SCH ×2 (09:14→21:11)
--- NOTE | 2018-01-09 10:35 | P.PNNS ---
Subjective Interval history: 01/09: moderate surgical pain when he moves still requiring VICTORIAN LITERATURE PROFESSOR. <Laura Harp - Last Filed: 01/09/18 11:16> Physical Exam Vital signs: Vital Signs 01/08/18 11:24 01/08/18 16:32 01/08/18 16:33 Temperature 97.3 F L Pulse Rate 67 Respiratory Rate 18 16 16 Blood Pressure 194/99 H Pulse Oximetry 98 01/08/18 16:58 01/08/18 18:44 01/08/18 20:25 Temperature 97.6 F 97.1 F L Pulse Rate 79 70 Respiratory Rate 18 16 18 Blood Pressure 194/116 H 186/97 H Pulse Oximetry 98 97 01/08/18 23:55 01/09/18 01:36 01/09/18 04:08 Temperature 98.2 F 97.2 F L Pulse Rate 65 72 Respiratory Rate 18 16 18 Blood Pressure 176/94 H 208/102 H Pulse Oximetry 96 97 01/09/18 06:05 01/09/18 08:00 01/09/18 09:18 Temperature 97.0 F L Pulse Rate 79 Respiratory Rate 15 18 18 Blood Pressure 176/116 H Pulse Oximetry 97 Intake & Output 01/08/18 01/09/18 01/09/18 18:59 06:59 18:59 Intake Total 1100 / 1100 2913 / 2913 Output Total 6200 / 6200 1785 / 1785 Balance -5100 / -5100 1128 / 1128 Weight 89 kg Intake: IV 1100 / 1100 1353 / 1353 NS Inj 1,000 ML @ 100 mls/hr IV 1000 / 1000 1353 / 1353 .SIG .Q10H [facility] Rx#:[id number] Ancef 2 GM Premix Inj 2 gm In 100 / 100 100 ml @ 200 mls/hr IV.SIG Q8H [facility] Rx#:[id number] Oral 1560 / 1560 Output: Urine 1775 / 1775 Urine Amount (Catheter) 6200 / 6200 Indwelling Urethral Catheter 6200 / 6200 Wound Drainage # 1 Lower Back Other: # Voids 1 Date of Last Bowel Movement 01/06/18 01/06/18 # Bowel Movements 0 Narrative: awake, alert, NAD, comfortable moving all major muscle groups of LE well minimal MATA output ambulatory with rolling walker - Urinary Catheter Management Indwelling Urethral Catheter Cath placed during this visit: yes, but has since been removed by the nurse Reason for continuing: Decision to DC catheter Removal date: 01/08/18 Removal time: 14:00 URE Cath placed during this visit: yes, but has since been removed by the nurse Reason for continuing: Not indwelling catheter Removal date: 01/08/18 Removal time: 14:00 <Laura Harp - Last Filed: 01/09/18 11:16> - Urinary Catheter Management Indwelling Urethral Catheter Cath placed during this visit: no URE Cath placed during this visit: no <Darryl Key - Last Filed: 01/16/18 12:12> Assessment and Plan - Plan Assessment s/p L4-L5 laminectomy, interbody arthrodesis using PEEK cage and autologous bone graft, L4-L5 instrumental fixation using transpedicular screws and rods, L4 -L5 distribution lead lateral fusion using autologous bone graft and demineralized bone matrix. Microsurgical dissection 01/07/18 plan: doing well cont VICTORIAN LITERATURE PROFESSOR for postoperative pain control until this evening dc MATA drain PT, mobilize with LSO brace scds and teds, protonix anticipte dc home tomorrow <Laura Harp - Last Filed: 01/09/18 11:16> - Plan The exam, history, and the medical decision-making described in the above note were completed with the assistance of the mid-level provider. I reviewed and agree with the findings presented. I attest that I had a [id number] encounter with the patient on the same day, and personally performed and documented my assessment and findings in the medical record. <Darryl Key - Last Filed: 01/16/18 12:12>
--- NOTE | 2018-01-09 13:37 | P.PN ---
Subjective Interval history: Follow-up visit for laminectomy 01/07. Patient is seen and examined sitting up in chair with and family at bedside. Patient reports his pain is well controlled and relieved with SURVEILLANCE DUAL RATE OFFICER pump, although pain is increased at the moment since he is just ambulated with the help of physical therapy and his SURVEILLANCE DUAL RATE OFFICER pump is now dry. He denies any nausea, vomiting, diarrhea, cough, shortness of breath or chest pain. Voiding without any dysuria, hesitancy or incontinence. Patient with positive flatus however no BM yet. Physical Exam Vital signs: Vital Signs 01/08/18 16:32 01/08/18 16:33 01/08/18 16:58 Temperature 97.6 F Pulse Rate 79 Respiratory Rate 16 16 18 Blood Pressure 194/116 H Pulse Oximetry 98 01/08/18 18:44 01/08/18 20:25 01/08/18 23:55 Temperature 97.1 F L 98.2 F Pulse Rate 70 65 Respiratory Rate 16 18 18 Blood Pressure 186/97 H 176/94 H Pulse Oximetry 97 96 01/09/18 01:36 01/09/18 04:08 01/09/18 06:05 Temperature 97.2 F L Pulse Rate 72 Respiratory Rate 16 18 15 Blood Pressure 208/102 H Pulse Oximetry 97 01/09/18 08:00 01/09/18 09:18 01/09/18 12:00 Temperature 97.0 F L 98.1 F Pulse Rate 79 89 Respiratory Rate 18 18 18 Blood Pressure 176/116 H 177/94 H Pulse Oximetry 97 96 01/09/18 13:26 Temperature Pulse Rate Respiratory Rate 18 Blood Pressure Pulse Oximetry Intake & Output 01/08/18 01/09/18 01/09/18 18:59 06:59 18:59 Intake Total 1100 / 1100 2913 / 2913 Output Total 6200 / 6200 1785 / 1785 Balance -5100 / -5100 1128 / 1128 Weight 89 kg Intake: IV 1100 / 1100 1353 / 1353 NS Inj 1,000 ML @ 100 mls/hr IV 1000 / 1000 1353 / 1353 .SIG .Q10H [facility] Rx#:[id number] Ancef 2 GM Premix Inj 2 gm In 100 / 100 100 ml @ 200 mls/hr IV.SIG Q8H [facility] Rx#:[id number] Oral 1560 / 1560 Output: Urine 1775 / 1775 Urine Amount (Catheter) 6200 / 6200 Indwelling Urethral Catheter 6200 / 6200 Wound Drainage # 1 Lower Back Other: # Voids 1 Date of Last Bowel Movement 01/06/18 01/06/18 01/06/18 # Bowel Movements 0 Narrative: GENERAL: Awake alert and oriented, appears to be in no acute distress. SKIN: Warm and dry. HEAD: Atraumatic. Normocephalic. EYES: Pupils equal and round. No scleral icterus. No injection or drainage. ENT: No nasal bleeding or discharge. Mucous membranes pink and moist. NECK: Trachea midline. No JVD. Supple CARDIOVASCULAR: Regular rate and rhythm. RESPIRATORY: No accessory muscle use. Clear to auscultation. Breath sounds equal bilaterally. GASTROINTESTINAL: Abdomen soft, non-tender, nondistended. + Bowel sounds. MUSCULOSKELETAL: Extremities without clubbing, cyanosis, or edema. No obvious deformities. LLE weakness, back brace in place, lower back dressing dry and intact with MATA drain in place with small amt. of sanguinous drainage. NEUROLOGICAL: Awake and alert. No obvious cranial nerve deficits. Motor grossly within normal limits. Normal speech. PSYCHIATRIC: Appropriate mood and affect; insight and judgment normal. - Urinary Catheter Management Indwelling Urethral Catheter Cath placed during this visit: yes, but has since been removed by the nurse Reason for continuing: Decision to DC catheter Removal date: 01/08/18 Removal time: 14:00 URE Cath placed during this visit: yes, but has since been removed by the nurse Reason for continuing: Not indwelling catheter Removal date: 01/08/18 Removal time: 14:00 Results - Labs CBC & Chem 7: 01/09/18 04:53 01/09/18 04:53 Laboratory Results - last 24 hr 01/09/18 01/09/18 04:53 04:53 WBC 14.8 H RBC 4.77 Hgb 14.7 Hct 40.8 MCV 85.5 MCH 30.8 MCHC 36.0 RDW 12.9 Plt Count 160 MPV 9.9 Prelim Diff (Auto) Slide review pending Neut % (Auto) 84.9 H Lymph % (Auto) 7.0 L [place] % (Auto) 8.0 Eos % (Auto) 0.1 Baso % (Auto) 0.0 Neut # (Auto) 12.5 H Lymph # (Auto) 1.0 [place] # (Auto) 1.2 H Eos # (Auto) 0.0 Baso # (Auto) 0.0 WBC Differential Manual diff final Seg Neuts % (Manual) 85 H Band Neuts % (Manual) 1 Lymphocytes % (Manual) 5 L Monocytes % (Manual) 8 Metamyelocytes % (Man) 1 Abs Neuts (Manual) 12.9 H Differential Comment . Platelet Estimate Normal Platelet Morphology Normal Sodium 140 Potassium 3.9 Chloride 100 Carbon Dioxide 32.6 H Anion Gap 7 BUN 13 Creatinine 0.83 Estimated GFR Greater than 89 Random Glucose 164 H Calcium 8.1 L Phosphorus 2.0 L Magnesium 2.5 Total Bilirubin 0.6 AST 40 H ALT 27 Alkaline Phosphatase 46 Total Protein 6.0 L D Albumin 3.2 L - Procedures (1) Degenerative disk disease (2) Degenerative disk disease Preoperative Diagnosis: LUMBAR DEGENERATIVE DISK DISEASE WITH RECURRENT DISK HERNIATION AND CAUDA EQUINE SYNDROME Postoperative Diagnosis: LUMBAR DEGENERATIVE DISK DISEASE WITH RECURRENT DISK HERNIATION AND CAUDA EQUINE SYNDROME Date of procedure: 01/07/18 Procedure: L4-L5 laminectomy, interbody arthrodesis using PEEK cage and autologous bone graft, L4-L5 instrumental fixation using transpedicular screws and rods, L4-L5 idea man lateral fusion using autologous bone graft and demineralized bone matrix. Microsurgical disse Assessment and Plan - Plan 47-year-old male with past medical history significant for herniated disc with spinal fusions followed by Dr. Key who developed increasing back pain, left leg paresthesia, groin numbness, as well as incontinence. Patient admitted to the hospital for concerns of cauda equina syndrome and lumbar radiculopathy. Possible cauda equina syndrome with radiculopathy going down left lower extremity - s/p L4-L5 laminectomy, interbody arthrodesis using PEEK cage and autologous bone graft, L4-L5 instrumental fixation using transpedicular screws and rods, L4 -L5 idea man lateral fusion using autologous bone graft and demineralized bone matrix. Microsurgical dissection 01/08 by - MATA to be removed today - SURVEILLANCE DUAL RATE OFFICER to be D/C later today, continue pain control - PT, OOB with LSO brace Constipation -Likely secondary to pain medication. Tolerating p.o. well, mag citrate yesterday with positive flatus however no BM. -Continue to encourage mobilization, lactulose today Hypertension -Patient received as needed IV Vasotec early this morning, also has as needed clonidine -We will start Norvasc 5 mg daily Leukocytosis -Likely reactive, improving. DVT prophylaxisambulation Discussed Condition With: Discussed with patient, , procedural nurse Planning: Will need clearance from neurosurgery.
--- NOTE | 2018-01-09 15:21 | P.DCO ---
- Physical Therapy Order: Evaluate and treat, Improve ambulation, Strength and gait training - Certification I have seen patient Uche Uribe Saelin WOODARD on 01/09/18. My clinical findings support the need for the requested home health care services because: Limited mobility due to disease progression, Deconditioned with increased weakness I certify that my clinical findings support that this patient is homebound because: Post-op weakness
[2018-01-09] MEDS ORDERED: amLODIPine 5 MG Tablet PO SCH (16:00)
[2018-01-09] MEDS: Sod Chloride 0.9% Inj 1,000 ML IV.SIG SCH ×2 (19:34)
[2018-01-10] MEDS ORDERED: LORazepam 0.5 MG Tablet PO ONE (03:08)
[2018-01-10] MEDS: oxyCODONE/Acetaminophen 10/325 Tablet PO PRN ×4 (03:53→17:42)
[2018-01-10] MEDS: Sod Chloride 0.9% Inj 1,000 ML IV.SIG SCH ×2 (03:53→13:56)
[2018-01-10] MEDS ORDERED: amLODIPine 10 MG Tablet PO SCH (09:00)
[2018-01-10] MEDS: Senna/Docusate Sodium 8.6/50 MG Tablet PO SCH (09:38)
[2018-01-10] MEDS: Famotidine PF Inj 20 MG/2 ML Vial IV.PUSH SCH (10:26)
[2018-01-10 13:36] VITALS: RESP 16; O2SAT 96
--- NOTE | 2018-01-10 15:48 | P.PNNS ---
Subjective Interval history: 01/10: surgical pain improving. no new neuro complaints. ready to go home. Physical Exam Vital signs: Vital Signs 01/09/18 16:00 01/09/18 17:08 01/09/18 20:54 Temperature 98.1 F 97.6 F Pulse Rate 79 78 Respiratory Rate 18 18 18 Blood Pressure 135/63 188/99 H Pulse Oximetry 97 98 01/10/18 00:25 01/10/18 00:33 01/10/18 03:00 Temperature 97.7 F 97.3 F L Pulse Rate 82 68 Respiratory Rate 18 Blood Pressure 189/91 H 181/103 H Pulse Oximetry 97 95 01/10/18 04:59 01/10/18 11:00 01/10/18 12:30 Temperature 98.9 F 98.1 F Pulse Rate 87 17 L Respiratory Rate 17 16 Blood Pressure 175/84 H 194/97 H 175/103 H Pulse Oximetry 97 96 Intake & Output 01/09/18 01/10/18 01/10/18 18:59 06:59 18:59 Intake Total 960 / 960 360 / 360 Output Total 800 / 800 2775 / 2775 Balance 160 / 160 -2415 / -2415 Weight 89 kg Intake: Oral 960 / 960 360 / 360 Output: Urine 800 / 800 2775 / 2775 Other: Date of Last Bowel Movement 01/06/18 01/06/18 01/06/18 # Bowel Movements 0 Narrative: awake, alert sitting up in chair wound with [place] bandage - Urinary Catheter Management Indwelling Urethral Catheter Cath placed during this visit: yes, but has since been removed by the nurse Reason for continuing: Not indwelling catheter Removal date: 01/08/18 Removal time: 14:00 URE Cath placed during this visit: yes, but has since been removed by the nurse Reason for continuing: Not indwelling catheter Removal date: 01/08/18 Removal time: 14:00 Assessment and Plan - Plan Assessment s/p L4-L5 laminectomy, interbody arthrodesis using PEEK cage and autologous bone graft, L4-L5 instrumental fixation using transpedicular screws and rods, L4 -L5 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 Microsurgical dissection 01/07/18 plan: doing well cont postop pain control with analgesics PT, mobilize with LSO brace scds and teds, protonix dc home HHC today change dressing to optifoam, f/u office 5-7 days for wound check
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
[2018-01-10 17:06] VITALS: BP 163/96; PULSE 89; TEMP 97.2
== END 2018-01-10 18:05 | disposition home health service (06) ==
LOC: NEPC 14:36 → NEDH 16:06 → N06 16:40
PROVIDERS: ADMIT Hospitalist; ATTEND Hospitalist
PROC: LAMPLIF (2018-01-07 08:42)